=== PATIENT | female | born 1950 | race Caucasian/White ===

== ENCOUNTER 2018-12-14 00:18 | Emergency (ER) | payer MEDICARE ==
[~2018-12-14] VITALS: Ht 170.2 cm; Wt 53.5 kg
[~2018-12-14 00:18] MED LIST: ALPR.5; ALPR.5 PO; CEPH500 PO; CLON.5; ESCI20; GABA300
[2018-12-14] MEDS ORDERED: LEVSOD25 (00:31)
[2018-12-14] MEDS ORDERED: CITA20 PO (00:31)
[2018-12-14] MEDS ORDERED: KETO10 PO (01:13)
== END 2018-12-14 01:50 | disposition home or self-care (01) ==
LOC: ER 00:18
DX: M62.830 Muscle spasm of back (principal); F10.10 Alcohol abuse, uncomplicated; F17.200 Nicotine dependence, unspecified, uncomplicated; Z79.899 Other long term (current) drug therapy
CPT/HCPCS: 96372; 99283-25; J1885

== ENCOUNTER 2018-12-19 13:21 | Emergency (ER) | payer MEDICARE ==
[~2018-12-19] VITALS: Ht 170.2 cm; Wt 53.5 kg
[~2018-12-19 13:21] MED LIST changes: +CITA20 PO; +KETO10 PO; +LEVSOD25
[2018-12-19 14:13] LABS: BASOPHILS ABSOLUTE AUTO 0.06 K/mm3 (0.00-0.23); BASOPHILS PERCENT AUTO 1 % (0-2); EOSINOPHILS ABSOLUTE AUTO 0.15 K/mm3 (0.00-0.68); EOSINOPHILS PERCENT AUTO 2 % (0-6); Hemoglobin 16.8 g/dL (11.5-16.0); IMMATURE GRAN PERCENT AUTO 1 % (0-1); LYMPHOCYTES ABSOLUTE AUTO 2.27 K/mm3 (0.84-5.20); LYMPHOCYTES PERCENT AUTO 25 % (21-46); MONOCYTES ABSOLUTE AUTO 0.81 K/mm3 (0.16-1.47); MONOCYTES PERCENT AUTO 9 % (4-13); Mean Corpuscular HGB 33.1 pg (26.0-34.0); Mean Corpuscular Volume 95 fL (80-100); Mean Platelet Volume 9.3 fL (9.1-12.4); NEUTROPHILS PERCENT AUTO 63 % (41-73); Platelet Count 201 K/mm3 (150-400); RDW Standard Deviation 45.1 fL (35.1-46.3); Red Blood Cell Count 5.07 M/mm3 (3.80-5.20); White Blood Cell Count 9.19 K/mm3 (4.00-11.30)
[2018-12-19 14:37] LABS: Ethanol (Alcohol), Blood, Med 267 mg/dL
[2018-12-19 14:41] LABS: Alanine Aminotransfer (ALT/SGP 86 U/L (12-78); Albumin, Blood 3.3 g/dL (3.4-5.0); Albumin/Globulin Ratio 0.7 (0.8-1.8); Alk Phos 166 U/L (50-136); Anion Gap 11 mmol/L (6-16); Aspartate Aminotrans (AST/SGOT 106 U/L (12-37); Bilirubin, Total 0.5 mg/dL (0.1-1.0); Blood Urea Nitrogen 8 mg/dL (8-24); Bun/Creatinine Ratio 13.9 (12.0-20.0); CO2, Blood 23 mmol/L (21-32); Calcium, Blood 8.7 mg/dL (8.5-10.1); Chloride, Blood 99 mmol/L (98-108); Creatinine, Blood 0.58 mg/dL (0.40-1.00); Globulin, Blood 4.7 g/dL (2.2-4.0); Glomerular Filtration Rate >60 (60-); Glucose, Blood 93 mg/dL (70-99); Potassium, Blood 3.9 mmol/L (3.5-5.5); Sodium, Blood 133 mmol/L (136-145)
== END 2018-12-19 16:21 | disposition left against medical advice (07) ==
LOC: ER 13:21
PROVIDERS: Physician Assistant
DX: F10.10 Alcohol abuse, uncomplicated (principal); Z53.20 Procedure and treatment not carried out because of patient's decision for unspecified reasons
CPT/HCPCS: 36415; 80053; 85025; 99283; G0480

== ENCOUNTER 2018-12-31 04:33 | Emergency (ER) | payer MEDICARE ==
[~2018-12-31] VITALS: Ht 170.2 cm; Wt 56.7 kg
[2018-12-31 05:44] LABS: BASOPHILS ABSOLUTE AUTO 0.08 K/mm3 (0.00-0.23); BASOPHILS PERCENT AUTO 1 % (0-2); EOSINOPHILS ABSOLUTE AUTO 0.15 K/mm3 (0.00-0.68); EOSINOPHILS PERCENT AUTO 2 % (0-6); Hematocrit 47.1 % (33.0-51.0); Hemoglobin 16.3 g/dL (11.5-16.0); IMMATURE GRAN ABSOLUTE AUTO 0.07 K/mm3 (0.00-0.10); IMMATURE GRAN PERCENT AUTO 1 % (0-1); LYMPHOCYTES ABSOLUTE AUTO 1.71 K/mm3 (0.84-5.20); LYMPHOCYTES PERCENT AUTO 23 % (21-46); MONOCYTES PERCENT AUTO 7 % (4-13); Mean Corpuscular HGB 33.2 pg (26.0-34.0); Mean Corpuscular HGB Conc 34.6 g/dL (31.5-36.5); Mean Corpuscular Volume 96 fL (80-100); Mean Platelet Volume 9.2 fL (9.1-12.4); NEUTROPHILS ABSOLUTE AUTO 4.95 K/mm3 (1.96-9.15); NEUTROPHILS PERCENT AUTO 66 % (41-73); Platelet Count 143 K/mm3 (150-400); RDW Coefficient Variation 14.6 % (11.7-14.2); RDW Standard Deviation 50.6 fL (35.1-46.3); Red Blood Cell Count 4.91 M/mm3 (3.80-5.20); White Blood Cell Count 7.46 K/mm3 (4.00-11.30)
[2018-12-31 06:00] LABS: Alanine Aminotransfer (ALT/SGP 142 U/L (12-78); Albumin, Blood 3.4 g/dL (3.4-5.0); Albumin/Globulin Ratio 0.8 (0.8-1.8); Alk Phos 165 U/L (50-136); Anion Gap 11 mmol/L (6-16); Aspartate Aminotrans (AST/SGOT 243 U/L (12-37); Bilirubin, Total 0.4 mg/dL (0.1-1.0); Blood Urea Nitrogen 8 mg/dL (8-24); Bun/Creatinine Ratio 16.1 (12.0-20.0); CO2, Blood 24 mmol/L (21-32); Calcium, Blood 8.6 mg/dL (8.5-10.1); Chloride, Blood 102 mmol/L (98-108); Globulin, Blood 4.4 g/dL (2.2-4.0); Glomerular Filtration Rate >60 (60-); Glucose, Blood 86 mg/dL (70-99); Potassium, Blood 3.8 mmol/L (3.5-5.5); Sodium, Blood 137 mmol/L (136-145); Total Protein, Blood 7.8 g/dL (6.4-8.2)
== END 2018-12-31 07:10 | disposition home or self-care (01) ==
LOC: ER 04:33
PROVIDERS: Emergency Medicine
DX: F10.129 Alcohol abuse with intoxication, unspecified (principal); Y90.8 Blood alcohol level of 240 mg/100 ml or more; E86.0 Dehydration; E03.9 Hypothyroidism, unspecified; F17.200 Nicotine dependence, unspecified, uncomplicated; Z88.8 Allergy status to other drugs, medicaments and biological substances; Z88.1 Allergy status to other antibiotic agents; Z88.6 Allergy status to analgesic agent; Z88.2 Allergy status to sulfonamides; Z88.5 Allergy status to narcotic agent; Z79.899 Other long term (current) drug therapy
CPT/HCPCS: 36415; 80053; 85025; 96365; 99284-25; G0480; J3411; J3475; J7042

== ENCOUNTER 2019-03-01 11:44 | Inpatient (IN) | payer MEDICARE ==
[~2019-03-01] VITALS: Ht 170.2 cm; Wt 52.9 kg
[~2019-03-01 11:44] MED LIST changes: -CITA20 PO; -LEVSOD25
[2019-03-01 12:20] LABS: BASOPHILS ABSOLUTE AUTO 0.06 K/mm3 (0.00-0.23); BASOPHILS PERCENT AUTO 1 % (0-2); EOSINOPHILS ABSOLUTE AUTO 0.02 K/mm3 (0.00-0.68); EOSINOPHILS PERCENT AUTO 0 % (0-6); Hematocrit 39.7 % (33.0-51.0); IMMATURE GRAN ABSOLUTE AUTO 0.09 K/mm3 (0.00-0.10); IMMATURE GRAN PERCENT AUTO 1 % (0-1); LYMPHOCYTES ABSOLUTE AUTO 1.01 K/mm3 (0.84-5.20); LYMPHOCYTES PERCENT AUTO 10 % (21-46); MONOCYTES ABSOLUTE AUTO 0.46 K/mm3 (0.16-1.47); MONOCYTES PERCENT AUTO 4 % (4-13); Mean Corpuscular HGB 35.2 pg (26.0-34.0); Mean Corpuscular HGB Conc 35.3 g/dL (31.5-36.5); Mean Corpuscular Volume 100 fL (80-100); Mean Platelet Volume 9.4 fL (9.1-12.4); NEUTROPHILS PERCENT AUTO 84 % (41-73); Platelet Count 165 K/mm3 (150-400); RDW Coefficient Variation 14.9 % (11.7-14.2); Red Blood Cell Count 3.98 M/mm3 (3.80-5.20); White Blood Cell Count 10.54 K/mm3 (4.00-11.30)
[2019-03-01 12:36] LABS: Alanine Aminotransfer (ALT/SGP 153 U/L (12-78); Albumin, Blood 3.1 g/dL (3.4-5.0); Albumin/Globulin Ratio 0.7 (0.8-1.8); Alk Phos 372 U/L (50-136); Anion Gap 12 mmol/L (6-16); Aspartate Aminotrans (AST/SGOT 353 U/L (12-37); Bilirubin, Total 0.7 mg/dL (0.1-1.0); Blood Urea Nitrogen 6 mg/dL (8-24); Bun/Creatinine Ratio 12.1 (12.0-20.0); CO2, Blood 20 mmol/L (21-32); Calcium, Blood 8.2 mg/dL (8.5-10.1); Chloride, Blood 99 mmol/L (98-108); Creatinine, Blood 0.49 mg/dL (0.40-1.00); Globulin, Blood 4.7 g/dL (2.2-4.0); Glomerular Filtration Rate >60 (60-); Glucose, Blood 105 mg/dL (70-99); Sodium, Blood 131 mmol/L (136-145); Total Protein, Blood 7.8 g/dL (6.4-8.2)
[2019-03-01] MEDS ORDERED: CITA20 PO (20:02)
[2019-03-01] MEDS ORDERED: LEVSOD75 PO (20:03)
--- NOTE | 2019-03-02 00:25 | NUR ---
ADMIT RECEIVED FROM ER VIA GURNEY. AWAKE AND ALERT. ORIENTED TO SELF AND PLACE. MOVES ALL EXTREMITIES. SEVERE TREMBLING NOTED IN UPPER EXTREMITIES. FOLLOWS SIMPLE COMMANDS. SPEECH SLIGHTLY GARBLED. ANSWERS MOST QUESTIONS APPROPRIATELY. MONITOR SHOWS ST, RATE 120s. HYPERTENSION NOTED. AFEBRILE. RESPIRATIONS EVEN AND UNLABORED. ATTENDS IN PLACE. SEE ADMIT ASSESSMENT FOR FULL ASSESSMENT.
--- NOTE | 2019-03-02 03:25 | NUR ---
CIWA PT AWAKE. C/O INCREASED ANXIETY AND TREMORS. ORIENTED TO SELF AND TO PLACE AT THIS TIME. UNSURE OF TIME OF DAY AND DATE. PRECEDEX CONTINUES AT 0.2MCG/KG/HR. MEDICATED WITH ATIVAN 2MG IV AT THIS TIME.
[2019-03-02 03:38] LABS: Hematocrit 36.2 % (33.0-51.0); Hemoglobin 12.4 g/dL (11.5-16.0); Mean Corpuscular HGB 34.4 pg (26.0-34.0); Mean Corpuscular HGB Conc 34.3 g/dL (31.5-36.5); Mean Corpuscular Volume 101 fL (80-100); Mean Platelet Volume 9.5 fL (9.1-12.4); Platelet Count 129 K/mm3 (150-400); RDW Coefficient Variation 14.7 % (11.7-14.2); RDW Standard Deviation 55.7 fL (35.1-46.3); White Blood Cell Count 9.68 K/mm3 (4.00-11.30)
[2019-03-02 03:57] LABS: Alanine Aminotransfer (ALT/SGP 126 U/L (12-78); Albumin, Blood 2.7 g/dL (3.4-5.0); Albumin/Globulin Ratio 0.7 (0.8-1.8); Alk Phos 325 U/L (50-136); Anion Gap 9 mmol/L (6-16); Aspartate Aminotrans (AST/SGOT 256 U/L (12-37); Blood Urea Nitrogen 8 mg/dL (8-24); CO2, Blood 25 mmol/L (21-32); Calcium, Blood 7.7 mg/dL (8.5-10.1); Chloride, Blood 99 mmol/L (98-108); Creatinine, Blood 0.44 mg/dL (0.40-1.00); Globulin, Blood 4.1 g/dL (2.2-4.0); Glomerular Filtration Rate >60 (60-); Glucose, Blood 104 mg/dL (70-99); Potassium, Blood 3.4 mmol/L (3.5-5.5); Sodium, Blood 133 mmol/L (136-145); Total Protein, Blood 6.8 g/dL (6.4-8.2)
[2019-03-02 05:34] LABS: Source, Urine Catheter
[2019-03-02 05:39] LABS: Bilirubin, Urine Neg (Neg); Blood, Urine 2+ (Neg); Glucose Qualitative, Urine Neg (Neg); Ketones, Urine 1+ (Neg); Leukocyte Esterase, Urine 1+ (Neg); Nitrite, Urine Pos (Neg); Protein, Urine Neg (Neg); Specific Gravity, Urine 1.015 (1.003-1.022); Urobilinogen, Urine NORM (Normal)
[2019-03-02 05:40] LABS: Color, Urine Yellow (P-Yellow)
[2019-03-02 05:44] LABS: Appearance, Urine Clear (Clear)
[2019-03-02 05:45] LABS: Bacteria Many /hpf; Red Blood Cells, Urine 0-2 /hpf (0-2); Squamous Epithelial Cells Few /hpf (Few); White Blood Cells, Urine 0-2 /hpf (0-5)
--- NOTE | 2019-03-02 06:23 | NUR ---
SHIFT SUMMARY NO ACUTE CHANGES DURING NOC. SEDATED WITH PRECEDEX BETWEEN 0.2-0.4MCG/KG/HR. NOW INFUSING @ 0.3MCG/KG/HR. MEDICATED WITH ATIVAN IV AND LIBRIUM PO NEEDED FOR INCREASED CIWA. CIWA SCORE BETWEEN 15-21 DURING SHIFT. ORIENTED TO SELF AND TO PLACE, BUT NOT TO DATE/TIME OF DAY. SPEECH IS SLIGHTLY GARBLED. COOPERATIVE WITH CARE. FORGETFUL. BED ALARM IS ON. BANANA BAG INFUSING @100CC/HR PER ORDER. BUTT PLACE DURING SHIFT D/T INCONTINENCE AND REDDENED/EXCORIATED SKIN AND COCCYX/BUTTOCK WOUND. MEPILEX IN PLACE. INCONTINENT OF LOOSE BROWN STOOL X 1. WILL REPORT TO DAY SHIFT RN WHEN AVAILABLE.
--- NOTE | 2019-03-02 10:05 | NUR ---
0800... PT EASILY AROUSED AND ABLE TO ANSWER QUESTIONS. PT NOTED TO HAVE VISIBALE TREMORS AND C/O NEED FOR MORE MEDS BUT IS ALSO FALLS TO SLEEP WHEN LEFT ALONE FOR JUST A SHORT TIME. IVF NOTED.
--- NOTE | 2019-03-02 10:21 | NUR ---
PT BED ALARM CONFIRMED ON. PT IS NOT REQUIRING RESTRAINTS.
--- NOTE | 2019-03-02 13:07 | NUR ---
PT CURRENTLY FEARFUL AND ASKING FOR SITTER AT BED SIDE. PT PRECEDEX GTT AT 0.5 MCG AND ATIVAN GIVEN NOTED.
--- NOTE | 2019-03-02 17:34 | NUR ---
PT EASILY AROUSED ON PRECEDEX GTT RANGING 0.3-0.5 MCG TODAY. PT IS ANXIOUS AND FEARFUL WHILE AWAKE. PT U.O. IS LOW AND WILL INQUIRE ABOUT INCREASING RATE. IVF NS TO INCREASE TO 125ML.
--- NOTE | 2019-03-02 17:38 | NUR ---
Per admit trigger, I met with Alma to offer encouragement and prayer. She is very sleepy, but awakens to voice. She told me she is worried about her tremors. She appeared quite bothered by this and aske me to se if the RN could bring more medication "to make it stop." She declined prayer. She also denied that she has been trying to stop drinking. That said, she is very groggy and had trouble staying awake. I informed RN of her medication request. [facility] [facility] will remain available.
--- NOTE | 2019-03-02 20:54 | NUR ---
ASSUMED CARE OF PT, REPORT RCV'D FROM TYRONE JO RN. PT AROUSES TO STIMULI, PT ALERT TO SELF, PLACE AND SITUATION. PT AWAKES IN A PANIC AND IMMEDIATELY BEGINS ASKING FOR ATIVAN. PT VERY TREMULOUS WITH SEVERE ANXIETY STATING THAT SHE "ISN'T GETTING ENOUGH MEDICATION". PT CURRENTLY ON PRECEDEX 0.4 MCG/KG/HR, NS @100 ML/HR. LUNG SOUNDS CLEAR T/O, VSS. BUTT PATENT AND DRAINING. BED IN LOW/LOCKED POSITIONG,CALL LIGHT WITHIN REACH. SEE FULL SHIFT ASSESSMENT.
--- NOTE | 2019-03-03 00:16 | NUR ---
PT REFUSING REPOSITIONING. PT SITTING WITH HOB 30 DEGREES WITH 2 PILLOWS BEHIND HER HEAD. PT STATES THAT MOVING HER FROM THAT POSITION OR BY REDISTRIBUTING WEIGHT CAUSES "EXTREME ANXIETY AND PANIC". PT REMINDED THAT SHE CAME IN WITH A PRESSURE ULCER ON HER SACRUM AND THAT SHE IS AT INCREASED RISK FOR NEW OR WORSENING PRESSURE ULCERS. PT RESPONDED "I DON'T CARE, I AM FINE"
--- NOTE | 2019-03-03 00:34 | NUR ---
PT HALLUCINATING BELIEVING THAT HER ROOM IS "ON FIRE", PT REMINDED THAT SHE IS IN THE HOSPITAL AND REASSURED THAT HER ROOM IS NOT ON FIRE. PT REMAINS PANICKED, TREMULOUS, AND FRIGHTENED. CURRENT CIWA 31. WILL MEDICATE ACCORDINGLY.
--- NOTE | 2019-03-03 02:08 | NUR ---
PT AWAKES THINKING SHE IS AT HOME AND ASKING IF I "SPILLED HER BEER", I REMINDED HER THAT SHE WAS AT THE HOSPITAL, PT RESPONDS "BUT WHERE IS MY BEER?" REMINDED PT THAT WE DON'T SERVE BEER IN THE ICU. PT ASKED "WHY I WAS MAD AT HER". PT MEDICATED WITH ATIVAN PER [facility] PROTOCOL. INCONTINENT OF STOOL, CATH CARE AND REPOSITIONING DONE.
[2019-03-03 04:09] LABS: Anion Gap 6 mmol/L (6-16); Blood Urea Nitrogen 9 mg/dL (8-24); Bun/Creatinine Ratio 19.6 (12.0-20.0); CO2, Blood 25 mmol/L (21-32); Calcium, Blood 7.5 mg/dL (8.5-10.1); Chloride, Blood 104 mmol/L (98-108); Creatinine, Blood 0.46 mg/dL (0.40-1.00); Glomerular Filtration Rate >60 (60-); Glucose, Blood 112 mg/dL (70-99); Magnesium, Blood 1.9 mg/dL (1.6-2.4); Potassium, Blood 3.1 mmol/L (3.5-5.5); Sodium, Blood 135 mmol/L (136-145)
--- NOTE | 2019-03-03 06:00 | NUR ---
SHIFT SUMMARY PT AROUSABLE BUT OFTEN CONFUSED. CIWA BETWEEN 20-31. PT STILL EXHIBITS SEVERE TREMORS BLE AND HAD SEVERAL INCIDENCES OF HALLUCINATIONS (SEE PREVIOUS NOTES) PT IS VERY WEAK, UNABLE TO ASSIST WITH TURNS, CANNOT HOLD CUP IN HER HAND AND HAS DIFFICULTY SIPPING WATER THROUGH A STRAW. PT HAD ONE LOOSE INCONTINENT BOWEL AND 2100 DARK YELLOW URINE OUTPUT. PT MILDLY HYPERTENSIVE WITH SBP'S IN UPPER 160'S. ALL OTHER VSS. NS @ 125 ML/HR, PRECEDEX @ 0.7 MCG/KG/HR. SEE PREVIOUS NOTES FROM THIS SHIFT. WILL REPORT TO DAYSHIFT NURSE.
--- NOTE | 2019-03-03 08:49 | NUR ---
ASSUMED CARE: REPORT RECEIVED FROM JULIET Powell RN. ASSUMED CARE OF THIS PT AT APPROX 0700. ON ASSESSMENT, THE PT IS ANXIOUS & CALLING OUT "NURSE, NURSE!" SHE IS FAIRLY REDIRECTABLE & CALMS W/ REASSURANCE & MEDS PER EMAR. SHE NEEDS FREQUENT REMINDERS THAT SHE HAS INDEED RECEIVED HER MEDS & ASKS OFTEN "WHEN WILL THIS END?" R/T HER ETOH W/D. PRECEDEX DRIP CONTINUES AT 0.7 MCG/KG/HR W/ ATIVAN PER EMAR FOR BREAKTHROUGH ANXIETY/ WITHDRAWAL SYMPTOMS. WILL CONTINUE TO MONITOR & UPDATE NEEDED.
--- NOTE | 2019-03-03 11:03 | NUR ---
UPDATE: PT CALLING OUT, STS "HELP ME, I'M BLEEDING." SHE IS HALLUCINATING AT THIS TIME THAT HER NOSE IS BLEEDING. REASSURANCE PROVIDED THAT HER NOSE IS ONLY RUNNING, NOT BLEEDING. SHE IS FAIRLY REDIRECTABLE. MEDS PER EMAR.
--- NOTE | 2019-03-03 18:34 | NUR ---
SHIFT SUMMARY: NO ACUTE CHANGES SINCE INTITIAL ASSESSMENT. PT REMAINS A&O TO SELF, EVENT & OCCASIONALLY PERSON. SHE IS OVERALL FORGETFUL & DISORIENTED, NEEDING FREQUENT REASSURANCE & REMINDERS OF CARE THAT IS BEING/ HAS BEEN PROVIDED. CIWA CHARTED; 25-30. LS ARE CLEAR T/O, DIM IN BASES. PT ON RA W/ O2 SATS > 92%. OCCASIONAL COUGHING NOTED AFTER PT TAKES SIPS OF WATER, SHE CLEARS THIS WELL. MONITOR SHOWS SR-SB W/ HR 50-60s. BP STABLE. BT x4, PT HAVING LOOSE STLS & IS INCONTINENT OF BOWEL. BUTT PATENT/DRAINING YELLOW URINE W/ SEDIMENT. MEPILEX TO COCCYX HAS BEEN CHANGED THIS EVENING. WILL CONTINUE TO MONITOR & REPORT OFF TO ONCOMING RN.
[2019-03-04 04:13] LABS: BASOPHILS ABSOLUTE AUTO 0.04 K/mm3 (0.00-0.23); BASOPHILS PERCENT AUTO 1 % (0-2); EOSINOPHILS ABSOLUTE AUTO 0.07 K/mm3 (0.00-0.68); EOSINOPHILS PERCENT AUTO 1 % (0-6); Hematocrit 38.2 % (33.0-51.0); Hemoglobin 12.9 g/dL (11.5-16.0); IMMATURE GRAN ABSOLUTE AUTO 0.04 K/mm3 (0.00-0.10); IMMATURE GRAN PERCENT AUTO 1 % (0-1); LYMPHOCYTES ABSOLUTE AUTO 0.89 K/mm3 (0.84-5.20); LYMPHOCYTES PERCENT AUTO 15 % (21-46); MONOCYTES ABSOLUTE AUTO 0.31 K/mm3 (0.16-1.47); MONOCYTES PERCENT AUTO 5 % (4-13); Mean Corpuscular HGB Conc 33.8 g/dL (31.5-36.5); Mean Corpuscular Volume 101 fL (80-100); Mean Platelet Volume 10.4 fL (9.1-12.4); NEUTROPHILS PERCENT AUTO 78 % (41-73); Platelet Count 97 K/mm3 (150-400); RDW Coefficient Variation 14.3 % (11.7-14.2); Red Blood Cell Count 3.79 M/mm3 (3.80-5.20); White Blood Cell Count 6.05 K/mm3 (4.00-11.30)
[2019-03-04 04:34] LABS: Alanine Aminotransfer (ALT/SGP 105 U/L (12-78); Albumin, Blood 2.6 g/dL (3.4-5.0); Albumin/Globulin Ratio 0.6 (0.8-1.8); Alk Phos 311 U/L (50-136); Anion Gap 7 mmol/L (6-16); Aspartate Aminotrans (AST/SGOT 167 U/L (12-37); Bilirubin, Total 1.1 mg/dL (0.1-1.0); Blood Urea Nitrogen 6 mg/dL (8-24); Bun/Creatinine Ratio 12.7 (12.0-20.0); CO2, Blood 26 mmol/L (21-32); Calcium, Blood 7.8 mg/dL (8.5-10.1); Chloride, Blood 104 mmol/L (98-108); Creatinine, Blood 0.47 mg/dL (0.40-1.00); Globulin, Blood 4.2 g/dL (2.2-4.0); Glomerular Filtration Rate >60 (60-); Glucose, Blood 105 mg/dL (70-99); Sodium, Blood 137 mmol/L (136-145); Total Protein, Blood 6.8 g/dL (6.4-8.2)
--- NOTE | 2019-03-04 05:33 | NUR ---
SHIFT SUMMARY PATIENT SLEEPY AT THE BEGINNING OF THE SHIFT, HOWEVER AFTER SEVERAL HOURS PATIENT BEGAN TO WAKE UP AND BECOME MORE ANXIOUS. PATIENT MEDICATED FOR CIWA SCORES PER EMAR. PATIENT HAD SEVERAL EPISODES OF ANXIETY THROUGHOUT THE NIGHT. WHEN AWAKE PATIENT CONSTANTLY STATING, "HELP ME, HELP ME." PATIENT HAS FREQUENT REQUESTS WHEN AWAKE FOR WATER, KLENEX, AND REPOSITIONING. PATIENT OFTEN STATES THAT SHE FEELS "PANICKY" EVEN WHEN SHE DOES NOT APPEAR TO BE IN DISTRESS. PATIENT STATES, "I KNOW I MAY NOT LOOK LIKE I'M PANICING BUT I FEEL LIKE IT INSIDE." PATIENT PROVIDED WITH APPROPRIATE SUPPORT. PATIENT REPOSITIONED AT LEAST Q2H THROUGHOUT THE NIGHT. IV FLUIDS AND PRECEDEX RUNNING PER ORDERS. PATIENT CURRENTLY APEPARS TO BE SLEEPING. WILL CONTINUE TO MONITOR PATIENT AND REPORT TO ONCOMING RN.
--- NOTE | 2019-03-04 06:15 | NUR ---
POTASSIUM OF 3.0: DR GUEVARA CALLED AND NOTIFIED OF PATIENT'S POTASSIUM LEVEL OF 3.0 THIS AM. ORDERS RECIEVED.
--- NOTE | 2019-03-04 08:16 | NUR ---
ASSUMED CARE: REPORT RECEIVED FROM ISAAC Maza RN. ASSUMED CARE OF THIS PT AT APPROX 0700. ON ASSESSMENT, THE PT CALLING OUT "NURSE" REPEATEDLY. UPON ENTERING THE ROOM SHE STS THAT SHE IS FRIGHTENED BECAUSE SHE "CAN'T BREATHE" R/T DRY MOUTH. SIPS OF WATER & MOUTH MOISTURIZER PROVIDED, THE PT TOLERATES THIS WELL. CIWA CHARTED, PT IS ANXIOUS & TREMULOUS BUT IS NOT HALLUCINATING AT THIS TIME. MEDS PER EMAR. POTASSIUM REPLETION ORDERED. WILL CONTINUE TO MONITOR & UPDATE NEEDED.
--- NOTE | 2019-03-04 09:00 | NUR ---
DR. SMITH: PROVIDER AT BEDSIDE TO SEE PT. REQUESTS THAT POTASSIUM BLOOD LEVEL BE RECHECKED AN HOUR AFTER REPLETION IS COMPLETED. NO OTHER ORDERS. WILL CONTINUE TO MONITOR & UPDATE NEEDED.
--- NOTE | 2019-03-04 17:49 | NUR ---
SHIFT SUMMARY: NO ACUTE CHANGES SINCE ASSUMING CARE. PT CONTINUES TO BE INTERMITTENTLY CONFUSED W/ CIWA SCORES CHARTED. MEDS PER EMAR. SHE IS HAVING SOME VISUAL & TACTILE HALLUCINATIONS WELL THIS SHIFT, "TEXTING" HER SO, CHERIE, DESPITE HER PHONE BEING TURNED OFF/. LS ARE CLEAR T/O, DIM IN BASES. PT ON RA W/ O2 SATS > 92%. MONITOR SHOWS SR-ST, 70-110s, INCREASED HR & BP W/ ANXIETY. PT HAS HAD NO BM THIS SHIFT, ATTENDS IN PLACE FOR HX BOWEL INCONTINENCE. BUTT PATENT/DRAINING YELLOW URINE, SMALL AMNT SEDIMENT NOTED. MEPILEX TO COCCYX REMAINS CDI. Q2H TURNS PT ALLOWS. WILL CONTINUE TO MONITOR & REPORT OFF TO ONCOMING RN.
--- NOTE | 2019-03-04 19:40 | NUR ---
ASSUMED CARE RECEIVED REPORT FROM JOSUE GONZALEZ. PT IS CURRENTLY ASLEEP. VITALS STABLE, ASIDE ELEVATED BP, MAY BE POSITIONAL THOUGH. PRECEDEX IS INFUSING 0.7MCG/KG/HR AND NS @ 125ML/HR. IV SITES WNL. BED LOW AND LOCKED, CALL LIGHT WIHTIN REACH.
--- NOTE | 2019-03-04 23:06 | NUR ---
UPDATE PT CIWA 17; VERY FEARFUL AND ANXIOUS. VERY PATICULAR ABOUT POSITIONING OF HERSELF AND THE PILLOWS AROUND HER; IF ITS NOT A CERTAIN WAY SHE GETS EVEN MORE ANXIOUS, FEARFUL AND SLIGHTLY AGITATED. SHE IS ALERT AND ORIENTED TO HERSELF, AND WHERE SHE IS, BUT TIME IS A STRUGGLE FOR HER. NO PERCEPTION OF TIME, ASKS IF SHE CAN HAVE HER NEXT DOSE OF ATIVAN AFTER BEING TOLD THAT SHE WAS JUST GIVEN SOME, AND THAT SHES NOT DUE FOR ANOTHER DOSE YET. SOMEWHAT REDIRECTABLE, WAS ABLE TO GET HER SOMEWHAT COMFORTABLE.
[2019-03-05 03:57] LABS: BASOPHILS ABSOLUTE AUTO 0.04 K/mm3 (0.00-0.23); BASOPHILS PERCENT AUTO 1 % (0-2); EOSINOPHILS PERCENT AUTO 2 % (0-6); Hematocrit 38.1 % (33.0-51.0); Hemoglobin 12.7 g/dL (11.5-16.0); IMMATURE GRAN ABSOLUTE AUTO 0.05 K/mm3 (0.00-0.10); IMMATURE GRAN PERCENT AUTO 1 % (0-1); LYMPHOCYTES ABSOLUTE AUTO 1.18 K/mm3 (0.84-5.20); LYMPHOCYTES PERCENT AUTO 24 % (21-46); MONOCYTES ABSOLUTE AUTO 0.36 K/mm3 (0.16-1.47); MONOCYTES PERCENT AUTO 7 % (4-13); Mean Corpuscular HGB 34.4 pg (26.0-34.0); Mean Corpuscular HGB Conc 33.3 g/dL (31.5-36.5); Mean Corpuscular Volume 103 fL (80-100); Mean Platelet Volume 10.2 fL (9.1-12.4); NEUTROPHILS ABSOLUTE AUTO 3.29 K/mm3 (1.96-9.15); NEUTROPHILS PERCENT AUTO 66 % (41-73); Platelet Count 84 K/mm3 (150-400); RDW Coefficient Variation 14.3 % (11.7-14.2); RDW Standard Deviation 54.4 fL (35.1-46.3); Red Blood Cell Count 3.69 M/mm3 (3.80-5.20); White Blood Cell Count 5.02 K/mm3 (4.00-11.30)
[2019-03-05 04:11] LABS: Anion Gap 11 mmol/L (6-16); Blood Urea Nitrogen 6 mg/dL (8-24); Bun/Creatinine Ratio 13.3 (12.0-20.0); CO2, Blood 23 mmol/L (21-32); Calcium, Blood 7.6 mg/dL (8.5-10.1); Chloride, Blood 105 mmol/L (98-108); Creatinine, Blood 0.45 mg/dL (0.40-1.00); Glomerular Filtration Rate >60 (60-); Glucose, Blood 97 mg/dL (70-99); Magnesium, Blood 1.3 mg/dL (1.6-2.4); Potassium, Blood 3.3 mmol/L (3.5-5.5); Sodium, Blood 139 mmol/L (136-145)
--- NOTE | 2019-03-05 06:20 | NUR ---
SHIFT SUMMARY PT IS ALERT, AND ORIENTED TO SELF PLACE AND . CIWA RANGING FROM ~5 (WHILE ASLEEP) TO 17-20 WHILE AWAKE. NO HALLUCINATIONS OVERNIGHT; PRIMARILY ANXIOUS, TREMULOUS, CLOUDED SENSORIUM, AND SLIGHTLY AGITATION. ATIVAN WAS GIVEN 2MG/Q2H; PER REQUEST OF PT, WHILE REMAINING UNDER 24MG/24H. PT WAS ABLE TO REST FOR A BIG CHUNK OF NIGHT, HOWEVER, HAD MULTIPLE MOMENTS OF ANXIETY/PANIC EPISODES. PT CONCERNED THAT SHES NOT GETTING BETTER, AND THAT SHE CANT STOP SHAKING. SHE STATED CONCERN THAT SHE DIDNT HAVE HER BOTTOM DENTURES AND THAT HER SAID "HE PUT THEM ON THE WHITE CHEST OUT THERE" WHILE POINTING OUTSIDE THE ROOM. TOLD HER THAT I WOULD HAVE THE DAY RN CALL THE AND ASK IN THE MORNING. SHE DOES NOT APPEAR TO HAVE A GOOD GRASP ON HER PERCEPTION OF TIME, ASKING FOR SOMETHING MULTIPLE TIMES, "IS IT TIME FOR MY ATIVAN?" AFTER TELLLING HER ITS NOT TIME YET, AND SHE IS DUE IN AN HOUR. PT SWALLOWS SMALL SIPS OF WATER GREAT; JUST NEEDS TO BE REMINDED TO SUCK HARDER, AND TO GO SLOW. DID NOT GIVE LIBRIUM OVERNIGHT BECAUSE HER MOUTH WAS EXTREEMLY DRY, SHE COULD ONLY SIP SMALL SIPS, AND THE NIGHT NURSE LAST NIGHT HAD TROUBLE. IF AWAKE BEFORE SHIFT REPORT WILL TRY TO GIVE LIBRIUM WITH LEVOTHYROXINE. PT IS IN NSR, WITH ELEVATED BP. GETTING BETTER THROGUHOUT NIGHT (SEE VS). NO BM AND MAKING PLENTY OF URINE (SEE I/O'S). PT REPORTS NO PAIN, OR HEADACHE. POTASSIUM STILL SLIGHTLY LOW WITH 3.3 AFTER K RIDER INFUSION. WILL PASS ON TO DAY RN. BED IS LOW AND LOCKED. CALL LIGHT WITHIN REACH.
--- NOTE | 2019-03-05 07:20 | NUR ---
ASSUMED CARE: REPORT RECEIVED FROM TESSY Abreu RN. ASSUMED CARE OF THIS PT AT APPROX 0700. ON ASSESSMENT, THE PT IS CALLING OUT "NURSE" & REQUESTING HER "ANXIETY MEDS." CIWA CHARTED, MEDS PER EMAR. PT IS ALERT & AWAKE ENOUGH TO SAFELY SWALLOW PILLS THIS AM, PO LIBRIUM HAS ALSO BEEN GIVEN. THE PT's SPEECH IS MORE CLEAR THIS AM & SHE HAS A BETTER GRASP OF TIME/ SURROUNDINGS TODAY THAN YESTERDAY. ELECTROLYTE REPLETION PER EMAR. WILL CONTINUE TO MONITOR & UPDATE NEEDED.
--- NOTE | 2019-03-05 09:20 | NUR ---
DR. SMITH: PROVIDER AT BEDSIDE TO SEE PT. DECREASED PLATELET COUNT & LOVENOX DOSING IS DISCUSSED. HIT PROTOCOL ORDERS TO BE PLACED, PT's PLT COUNT HAS DROPPED BY 50% SINCE ADMIT 4 DAYS AGO. LOVENOX TO BE HELD AT THIS TIME & SCD's TO BE PLACED ON PT. PROVIDER STS SHE WILL PLACE THESE ORDERS.
--- NOTE | 2019-03-05 15:17 | NUR ---
1500: CARE ASSUMED, PT SLEEPING AT THIS TIME, PRECEDEX 0.7MCG, POTASSIUM AND NS INFUSING PER ORDERS. VSS, HR 80'S, BP 144/80.
--- NOTE | 2019-03-05 16:38 | NUR ---
1600: PT AWAKE, ITCHING, TREMULOUS. CIWA 21, MEDICATED WITH ATIVAN AND LIBRIUM PER ORDERS. AT BEDSIDE, VSS.
--- NOTE | 2019-03-05 19:23 | NUR ---
1700: PT RESPONDED WELL TO ATIVAN AND LIBRIUM, SLEEPING AT THIS TIME, VSS. 0: ATTENDS CHANGED, PT REPOSITIONED, VS REMAIN STABLE. PRECEDEX 0.7MCG, PT COOPERATIVE, DENIES NEEDS. 1900: REPORT TO ONCOMING SHIFT, PT RESTING QUIETLY IN BED, VSS, AT BEDSIDE.
--- NOTE | 2019-03-05 19:45 | NUR ---
ASSUMED CARE RECIEVED REPORT FROM PAUL GONZALEZ. PT IS AWAKE TALKING TO AT BEDSIDE. PT IS ALERT, AND ORIENTED TO PLACE, , SELF, AND SITUATION. NOT SO MUCH TO TIME. PRECEDEX 0.7MCG/KG/HR AND NS @ 125ML/HR. PT STATES SHE IS IN A COMFORTABLE POSITION. BED IS LOW AND LOCKED, CALL LIGHT WITHIN REACH.
--- NOTE | 2019-03-06 02:42 | NUR ---
UPDATE PT HAD SUSTAINED RUN OF VTACH, RATE UP TO 200. WENT INTO ROOM AND WOKE UP PT UP; SHE WOKE UP AND STARTED TALKING, HR DROPPED BACK INTO NSR WITH A RATE IN 80-90'S. PT'S MENTATION IS AT BASELINE S/P VTACH. DENIES CP/SOB. CALLED TO [facility], STAT MAGNESIUM LEVEL ORDERED.
[2019-03-06 03:08] LABS: BASOPHILS ABSOLUTE AUTO 0.04 K/mm3 (0.00-0.23); BASOPHILS PERCENT AUTO 1 % (0-2); EOSINOPHILS ABSOLUTE AUTO 0.12 K/mm3 (0.00-0.68); EOSINOPHILS PERCENT AUTO 2 % (0-6); Hematocrit 38.6 % (33.0-51.0); Hemoglobin 12.9 g/dL (11.5-16.0); IMMATURE GRAN ABSOLUTE AUTO 0.09 K/mm3 (0.00-0.10); IMMATURE GRAN PERCENT AUTO 2 % (0-1); LYMPHOCYTES ABSOLUTE AUTO 1.28 K/mm3 (0.84-5.20); LYMPHOCYTES PERCENT AUTO 21 % (21-46); MONOCYTES ABSOLUTE AUTO 0.57 K/mm3 (0.16-1.47); MONOCYTES PERCENT AUTO 9 % (4-13); Mean Corpuscular HGB 34.7 pg (26.0-34.0); Mean Corpuscular HGB Conc 33.4 g/dL (31.5-36.5); Mean Corpuscular Volume 104 fL (80-100); NEUTROPHILS ABSOLUTE AUTO 4.03 K/mm3 (1.96-9.15); NEUTROPHILS PERCENT AUTO 66 % (41-73); Platelet Count 89 K/mm3 (150-400); RDW Coefficient Variation 14.2 % (11.7-14.2); RDW Standard Deviation 54.1 fL (35.1-46.3); Red Blood Cell Count 3.72 M/mm3 (3.80-5.20); White Blood Cell Count 6.13 K/mm3 (4.00-11.30)
[2019-03-06 03:24] LABS: Alanine Aminotransfer (ALT/SGP 77 U/L (12-78); Albumin, Blood 2.5 g/dL (3.4-5.0); Albumin/Globulin Ratio 0.6 (0.8-1.8); Alk Phos 256 U/L (50-136); Anion Gap 10 mmol/L (6-16); Aspartate Aminotrans (AST/SGOT 69 U/L (12-37); Bilirubin, Total 0.8 mg/dL (0.1-1.0); Blood Urea Nitrogen 7 mg/dL (8-24); Bun/Creatinine Ratio 14.7 (12.0-20.0); CO2, Blood 22 mmol/L (21-32); Calcium, Blood 8.1 mg/dL (8.5-10.1); Chloride, Blood 107 mmol/L (98-108); Creatinine, Blood 0.48 mg/dL (0.40-1.00); Globulin, Blood 4.1 g/dL (2.2-4.0); Glomerular Filtration Rate >60 (60-); Glucose, Blood 98 mg/dL (70-99); Potassium, Blood 3.4 mmol/L (3.5-5.5); Sodium, Blood 139 mmol/L (136-145); Total Protein, Blood 6.6 g/dL (6.4-8.2)
--- NOTE | 2019-03-06 05:23 | NUR ---
SBT/SEDATION VACATION PT DID WELL DURING SBT; SEE RT NOTE. MINIMAL TO ABSENT CUFF LEAK, HOWEVER. FOLLOWING COMMANDS, NODDING YES/NO, EQUAL STRENGTH IN CERTIFIED DRUG COUNSELOR IN EACH HAND. WIGGLED TOES. LIFTED EACH LEG ON COMMAND, AND TUCKED CHIN TO CHEST. DENIES PAIN. PROPOFOL WAS WEANED DOWN PRIOR TO SBT, AND WAS ON STANDBY FOR MAJORITY OF TRIAL. PRECEDEX WAS TITRATED UP TO 0.7MCG/KG/HR DURING TRIAL, AND NOW IS ON STANDBY. WHILE PROPOFOL BACK ON TO 30MCG/KG/MIN.
--- NOTE | 2019-03-06 07:20 | NUR ---
ASSUMED CARE: REPORT RECEIVED FROM TESSY Abrue RN. ASSUMED CARE OF THIS PT AT APPROX 0700. ON ASSESSMENT, THE PT IS CALLING OUT "NURSE!" & STS THAT SHE HAS "MESSED" HER PANTS. SHE THEN STS THAT SHE ACTUALLY "DREAMED" SHE HAD A BM BUT THAT SHE ACTUALLY HAD NOT. CIWA CHARTED, Q4 & PRN. POTASSIUM & MAG REPLETION INFUSING ORDERED, RATE ON POTASSIUM DECREASED BECAUSE OF PAIN/ BURNING W/ INFUSION. PT NOW TOLERATING WELL. PRECEDEX CONTINUES. THE PT HAS ONE PROLONGED EPISODE OF COUGHING FOLLOWING SIPS OF WATER PO. SHE HAS BEEN INSTRUCTED THAT NO MORE SIPS WILL BE ALLOWED UNTIL SHE IS MORE AWAKE & CAN SWALLOW SAFELY. SHE IS UPSET ABOUT THIS & IT IS REINFORCED THAT IT IS NOT SAFE FOR HER TO TAKE SIPS AT THIS TIME, HER IS AT BEDSIDE & EDUCATION REGARDING THIS ISSUE HAS BEEN COMPLETED W/ HIM WELL. WILL CONTINUE TO MONITOR & UPDATE NEEDED.
--- NOTE | 2019-03-06 07:31 | NUR ---
SHIFT SUMMARY PT HAD A RUN OF VTACH LAST NIGHT (SEE LAST NOTE) BUT RETURNED TO BASELINE HR WHEN AWOKEN, AND STARTED TALKING. PT ALERT AND ORIENTED TO SELF, SITUATION, AND PLACE. SOMETIMES CONFUSED, AND OFTEN FORGETFUL. SHE HAS LITTLE PERCEPTION OF TIME, AND RE ASKS THE SAME QUESTIONS. PRECEDEX IS INFUSING AT 0.7MCG/KG/HR, AND NS AT 125ML/HR. CIWA HAS BEEN 17 BETWEEN DOSES OF ATIVAN/LIBRIUM. PT SWALLOWS FINE WHEN REMINDED TO GO SLOW AND TO SUCK HARDER. VERY PARTICULAR ABOUT THE POSITION SHE WANTS TO BE IN. PT DENIES PAIN, AND EXPRESSES THAT SHE IS ANXIOUS, SCARED AND 'PANIC-EY'. BED IS LOW AND LOCKED AND CALL LIGHT WIHTIN REACH.
--- NOTE | 2019-03-06 08:30 | NUR ---
DR. SMITH: PROVIDER AT BEDSIDE TO SEE PT. ELECTROLYTE REPLETION IN PROGRESS, NO NEW ORDERS AT THIS TIME.
--- NOTE | 2019-03-06 17:51 | NUR ---
SHIFT SUMMARY: NO ACUTE CHANGES SINCE ASSUMING CARE. PT HAS RESTED WELL THIS SHIFT, SLEEPING MORE SOUNDLY THAN DURING PRIOR SHIFTS. CIWA DECREASING; PT IS LESS SHAKY & AGITATED, SHE REMAINS ANXIOUS WHEN AWAKE, HAVING NO HALLUCINATIONS THIS AFTERNOON. FREQUENCY OF ATIVAN DOSING HAS BEEN DECREASING WELL. REMAINS ON RA W/ O2 SATS > 92%. HAS MOIST COUGH BUT IS UNABLE TO THOROUGHLY EXPECTORATE SPUTUM. MONITOR SHOWS SR W/ HR 60-70s. BP STABLE. NO BM THIS SHIFT. BUTT PATENT/DRAINING CLEAR YELLOW URINE. MEPILEX TO COCCYX WOUND CHANGED THIS AM. WILL CONTINUE TO MONITOR & REPORT OFF TO ONCOMING RN.
--- NOTE | 2019-03-06 19:30 | NUR ---
ASSUMED CARE OF PT, REPORT RCV'D FROM LISA SALAS. PT ALERT/ORIENTED, SLOW TO RESPOND TO QUESTIONS, VISIBLY WEAK SHE IS UNABLE TO LIFT HER HEAD. PT IMMEDIATELY ASKS FOR ATIVAN AND LIBRIUM UPON AROUSAL. PT IS NOT VISIBLY TREMULOUS, NO VISUAL/AUDITORY HALLUCINATIONS. PRECEDEX @0.5 MCG/KG/HR, NS@ 125 ML/HR. BUTT PATENT AND DRAINING DARK VERENA URINE. SEE FULL SHIFT ASSESSMENT.
[2019-03-07 03:32] LABS: BASOPHILS ABSOLUTE AUTO 0.06 K/mm3 (0.00-0.23); BASOPHILS PERCENT AUTO 1 % (0-2); EOSINOPHILS ABSOLUTE AUTO 0.14 K/mm3 (0.00-0.68); EOSINOPHILS PERCENT AUTO 2 % (0-6); Hematocrit 37.2 % (33.0-51.0); Hemoglobin 12.1 g/dL (11.5-16.0); IMMATURE GRAN ABSOLUTE AUTO 0.09 K/mm3 (0.00-0.10); IMMATURE GRAN PERCENT AUTO 1 % (0-1); LYMPHOCYTES ABSOLUTE AUTO 1.23 K/mm3 (0.84-5.20); LYMPHOCYTES PERCENT AUTO 19 % (21-46); MONOCYTES ABSOLUTE AUTO 0.64 K/mm3 (0.16-1.47); MONOCYTES PERCENT AUTO 10 % (4-13); Mean Corpuscular HGB 35.3 pg (26.0-34.0); Mean Corpuscular HGB Conc 32.5 g/dL (31.5-36.5); NEUTROPHILS PERCENT AUTO 66 % (41-73); Platelet Count 89 K/mm3 (150-400); RDW Coefficient Variation 14.4 % (11.7-14.2); RDW Standard Deviation 58.1 fL (35.1-46.3); Red Blood Cell Count 3.43 M/mm3 (3.80-5.20); White Blood Cell Count 6.36 K/mm3 (4.00-11.30)
--- NOTE | 2019-03-07 03:33 | NUR ---
SWALLOW EVAL PT ATTEMPTED TO TAKE SIP OF WATER THROUGH STRAW AND BEGAN CHOKING/COUGHING. PER DAYSHIFT PT CHOKED WHILE ATTEMPTING TO DRINK OUT OF CUP THIS AM. EXPLAINED TO PT THAT FOR HER SAFETY SHE CANNOT HAVE ANYTHING TO DRINK. PLACED REQUEST FOR SWALLOW EVAL WITH SPEECH THERAPY.
[2019-03-07 03:40] LABS: Mean Corpuscular Volume 109 fL (80-100)
[2019-03-07 03:52] LABS: Alanine Aminotransfer (ALT/SGP 63 U/L (12-78); Albumin, Blood 2.4 g/dL (3.4-5.0); Albumin/Globulin Ratio 0.6 (0.8-1.8); Alk Phos 224 U/L (50-136); Anion Gap 10 mmol/L (6-16); Aspartate Aminotrans (AST/SGOT 60 U/L (12-37); Bilirubin, Total 0.7 mg/dL (0.1-1.0); Blood Urea Nitrogen 7 mg/dL (8-24); Bun/Creatinine Ratio 14.2 (12.0-20.0); CO2, Blood 21 mmol/L (21-32); Calcium, Blood 8.2 mg/dL (8.5-10.1); Chloride, Blood 109 mmol/L (98-108); Creatinine, Blood 0.49 mg/dL (0.40-1.00); Globulin, Blood 3.9 g/dL (2.2-4.0); Glomerular Filtration Rate >60 (60-); Glucose, Blood 91 mg/dL (70-99); Magnesium, Blood 1.5 mg/dL (1.6-2.4); Potassium, Blood 3.3 mmol/L (3.5-5.5); Sodium, Blood 140 mmol/L (136-145); Total Protein, Blood 6.3 g/dL (6.4-8.2)
--- NOTE | 2019-03-07 05:51 | NUR ---
SHIFT SUMMARY PRECEDEX GTT PLACED ON STANDBY AT 0300 D/T LOW CIWA SCORES. PT BECAME MUCH MORE ALERT/ORIENTED AND QUICKER TO RESPOND TO QUESTIONS. PT EXPRESSED HER WISH TO REMAIN ON PRECEDEX AND RECEIVE ATIVAN AND LIBRIUM OFTEN POSSIBLE. EXPLAINED TO PT THAT SHE WAS GETTING BETTER AND THAT THIS IMPROVEMENT WAS GOOD. PT BEGAN SHAKING HER HANDS SAYING "LOOK IM SHAKY...GIVE ME MY MEDICINE". CIWA SCORES HAVE BEEN . PT HAS NOT HAD ANY VISIBLE TREMORS, OR HALLUCINATIONS BUT DOES APPEAR ANXIOUS. PT GIVEN 2 DOSES OF ATIVAN AND DID NOT REQUIRE ANY LIBRIUM. SWALLOW EVAL PLACED D/T PT'S TROUBLE SWALLOWING WATER. (SEE PREVIOUS NOTE) PT IS UNHAPPY BEING NPO STATUS AND ASKS IF SHE IS "INTENTIONALLY BEING STARVED TO ". MOUTH MOISTURIZER USED PRN. SEE PREVIOUS NOTES FROM THIS SHIFT. WILL REPORT TO DAYSINFT.
[2019-03-07 13:07] LABS: HEPARIN INDUCED PLATELET AB 0.252 OD (0.000-0.400)
--- NOTE | 2019-03-07 14:34 | NUR ---
UPDATE: REPORT HAS BEEN GIVEN TO MARIANA Ingram RN ON MED FLOOR TO ASSUME CARE. PT TO BE TX TO ROOM 331. BUTT HAS BEEN REMOVED. IVF DISCONTINUED PER ORDERS. PT TOLERATING SMALL AMNTS OF PO INTAKE WELL W/ NO NAUSEA.
--- NOTE | 2019-03-07 17:35 | NUR ---
ICU TRANSFER PT ARRIVE ON MED FLOOR APPROX 1530. SHE IS A/O X2, WEAK/FATIGUED, FRAIL. SHE STATE ANXIOUSNESS. BUE TREMOR NOTED. CIWA 10. PRN LIBRIUM 50MG GIVEN. HR TACHY 120'S. ACTIVE ETOH W/D. PT HAS BEEN DETOXING IN ICU APPROX 5 DAYS. IN TO VISIT. FLUIDS PROVIDED. WILL CONTINUE TO MX.
--- NOTE | 2019-03-08 04:02 | NUR ---
DURING THE FIRST HALF OF THE SHIFT, THE PT WAS QUITE ANXIOUS. ATIVAN WAS GIVEN APPROPRIATELY. EVENTUALLY PT WAS ABLE TO SLEEP. PT WAS REPOSITIONED APPROPRIATE, HEELS RAISED OFF THE BED. NO FURTHER SKIN BREAKDOWN NOTED AT THIS TIME. WILL CONTINUE TO MONITOR.
[2019-03-08 05:10] LABS: BASOPHILS ABSOLUTE AUTO 0.05 K/mm3 (0.00-0.23); BASOPHILS PERCENT AUTO 1 % (0-2); EOSINOPHILS PERCENT AUTO 2 % (0-6); Hemoglobin 12.7 g/dL (11.5-16.0); IMMATURE GRAN ABSOLUTE AUTO 0.07 K/mm3 (0.00-0.10); IMMATURE GRAN PERCENT AUTO 1 % (0-1); LYMPHOCYTES ABSOLUTE AUTO 0.96 K/mm3 (0.84-5.20); LYMPHOCYTES PERCENT AUTO 16 % (21-46); MONOCYTES ABSOLUTE AUTO 0.72 K/mm3 (0.16-1.47); MONOCYTES PERCENT AUTO 12 % (4-13); Mean Corpuscular HGB 35.3 pg (26.0-34.0); Mean Corpuscular HGB Conc 33.4 g/dL (31.5-36.5); Mean Platelet Volume 10.4 fL (9.1-12.4); NEUTROPHILS PERCENT AUTO 68 % (41-73); Platelet Count 121 K/mm3 (150-400); RDW Coefficient Variation 14.4 % (11.7-14.2); RDW Standard Deviation 55.8 fL (35.1-46.3)
[2019-03-08 05:11] LABS: Mean Corpuscular Volume 106 fL (80-100)
[2019-03-08 05:25] LABS: Anion Gap 9 mmol/L (6-16); Blood Urea Nitrogen 10 mg/dL (8-24); Bun/Creatinine Ratio 18.6 (12.0-20.0); CO2, Blood 23 mmol/L (21-32); Chloride, Blood 109 mmol/L (98-108); Creatinine, Blood 0.54 mg/dL (0.40-1.00); Glomerular Filtration Rate >60 (60-); Glucose, Blood 112 mg/dL (70-99); Potassium, Blood 3.1 mmol/L (3.5-5.5); Sodium, Blood 141 mmol/L (136-145)
--- NOTE | 2019-03-08 08:15 | NUR ---
PATIENT DID NOT WANT BREAKFAST THIS MORNING. PATIENT DECINED WHEN I OFFERED ALTERNATIVES WELL AN ENSURE, I OFFERED TO HELP AND SHE DECLINED. RN WAS NOTIFIED.
--- NOTE | 2019-03-08 18:19 | NUR ---
PATIENTS ATTENDS WERE CHECKED AND THEY WERE CLEN AND DRY. FAMILY WAS PRESENT IN THE ROOM. PATIENT SATTED SHE WAS DRY WHEN I LET HER KNOW WHAT I WAS IN THE ROOM TO DO, HOWEVER SHE LET ME CHECK WELL.
--- NOTE | 2019-03-08 18:22 | NUR ---
SHIFT SUMMARY OX3; ETOH ABUSE; APPROX 6TH DAY OF DETOX. QUITE TREMULOUS AND ANXIOUS. SPOUSE TO VISIT THROUGHOUT DAY AND ATTENTIVE. DECONDITIONED. UNHAPPY ABOUT POSSIBLE DISCHARGE TO [facility] TOMORROW. "I JUST LIKE IT HERE."; INCONTINENT. TAKING LIBRIUM. ATIVAN DISCONTINUED TODAY. BED REST. WORKED WITH PT TODAY BUT REMAINS QUITE WEAK.
--- NOTE | 2019-03-09 00:59 | NUR ---
LIBRIUM RECIEVED FOR CIWA 4 FOR TREMORS AND ANXIETY. AWAITING EFFECT.
--- NOTE | 2019-03-09 04:08 | NUR ---
SUMMARY: PT ORIENTED BUT FORGETFULL AND REQ'S FREQ REMINDERS. SHE CALLS INTO [facility] FOR NON-ACUTE NEEDS. TURN SCHEDULE WAS MAINTAINED AND ATTENDS CHANGED PRN. MEPILEX REMAINS C/D/I TO EXCORIATED BUTTOCKS. SHE SAT AT EOB W/PT TODAY AND STOOD MOMENTARILY BUT WAS NOT OOB THIS SHIFT. WEAKNESS AND DECONDITIONING PERSISTS W/LIKELY D/C TO [facility]. CIWA WAS 4 AROUND MN W/PRN LIBRIUM RECIEVED FOR GOOD EFFECT AT REDUCING ANXIETY AND TREMORS R/T ETOH ABUSE. SHE DOESN'T FEEL READY TO D/C TODAY AND WOULD PREFER TO STAY "ANOTHER DAY OR 2". THEY PLAN TO DISCUSS THIS W/DAY MD FURTHER. NO ACUTE CHANGES, VSS/AFEBRILE. WCTM AND REPORT TO DAY RN.
[2019-03-09 06:19] LABS: Anion Gap 7 mmol/L (6-16); Blood Urea Nitrogen 13 mg/dL (8-24); Bun/Creatinine Ratio 23.5 (12.0-20.0); CO2, Blood 24 mmol/L (21-32); Calcium, Blood 8.7 mg/dL (8.5-10.1); Chloride, Blood 112 mmol/L (98-108); Creatinine, Blood 0.55 mg/dL (0.40-1.00); Glomerular Filtration Rate >60 (60-); Glucose, Blood 103 mg/dL (70-99); Potassium, Blood 3.1 mmol/L (3.5-5.5); Sodium, Blood 143 mmol/L (136-145)
[2019-03-09] MEDS ORDERED: NICO21TP (11:19)
[2019-03-09] MEDS ORDERED: DOCU100 PO (11:19)
[2019-03-09] MEDS ORDERED: MIRALAX17 GM PO (11:20)
[2019-03-09] MEDS ORDERED: NICOTINE1 EAC1 TOP (11:20)
[2019-03-09] MEDS ORDERED: LORA1 PO (11:21)
--- NOTE | 2019-03-09 13:00 | NUR ---
PT. DISCHARGED TO [facility] VIA GROUND TRANSPORT AND . REPORT GIVEN EARLIER, WHEN CALLED BACK FOR REPORT ON ROOM32.
== END 2019-03-09 13:08 | DRG 897 ==
LOC: ER 11:44 → ERHOLD 11:45 → ICUE 23:55 → MEDS 03-07 16:00 → ENPENDDIS 03-09 10:50 → MEDS 03-09 13:08
PROVIDERS: Hospitalist; Internal Medicine; Physician Assistant; ADMIT Emergency Medicine
DX: F10.231 Alcohol dependence with withdrawal delirium (principal); E87.1 Hypo-osmolality and hyponatremia; N39.0 Urinary tract infection, site not specified; K70.10 Alcoholic hepatitis without ascites; E86.0 Dehydration; E87.6 Hypokalemia; E83.42 Hypomagnesemia; F17.210 Nicotine dependence, cigarettes, uncomplicated; F41.9 Anxiety disorder, unspecified; E03.9 Hypothyroidism, unspecified; B96.20 Unspecified Escherichia coli [E. coli] as the cause of diseases classified elsewhere
CPT/HCPCS: 36415; 51702; 80048; 80053; 81001; 83690; 83735; 84132; 85025; 85027; 86022; 87077; 87086; 87186; 92610; 93005; 93010; 96361; 96374; 96375; 96376; 97110; 97162; 97166; 97530; 97535; 99285-25; C1751; G0480; J0696; J1650; J2060; J3411; J3475; J3480; J7030; J7042; J7050

== ENCOUNTER 2020-07-02 14:14 | Emergency (ER) | payer MEDICARE ==
[~2020-07-02] VITALS: Ht 170.2 cm; Wt 54.4 kg
[~2020-07-02 14:14] MED LIST changes: +CITA20 PO; +DOCU100 PO; +LEVSOD75 PO; +LORA1 PO; +MIRALAX17 GM PO; +NICO21TP; +NICOTINE1 EAC1 TOP
[2020-07-02 14:55] LABS: BASOPHILS ABSOLUTE AUTO 0.05 K/mm3 (0.00-0.23); BASOPHILS PERCENT AUTO 1 % (0-2); EOSINOPHILS ABSOLUTE AUTO 0.03 K/mm3 (0.00-0.68); EOSINOPHILS PERCENT AUTO 0 % (0-6); Hematocrit 37.9 % (33.0-51.0); IMMATURE GRAN ABSOLUTE AUTO 0.08 K/mm3 (0.00-0.10); IMMATURE GRAN PERCENT AUTO 1 % (0-1); LYMPHOCYTES PERCENT AUTO 14 % (21-46); MONOCYTES PERCENT AUTO 4 % (4-13); Mean Corpuscular HGB 34.1 pg (26.0-34.0); Mean Corpuscular HGB Conc 34.3 g/dL (31.5-36.5); Mean Corpuscular Volume 100 fL (80-100); Mean Platelet Volume 10.8 fL (9.1-12.4); NEUTROPHILS ABSOLUTE AUTO 7.34 K/mm3 (1.96-9.15); NEUTROPHILS PERCENT AUTO 80 % (41-73); Platelet Count 99 K/mm3 (150-400); RDW Coefficient Variation 13.4 % (11.7-14.2); RDW Standard Deviation 49.4 fL (35.1-46.3); Red Blood Cell Count 3.81 M/mm3 (3.80-5.20)
[2020-07-02 15:21] LABS: Alanine Aminotransfer (ALT/SGP 50 U/L (12-78); Albumin, Blood 2.3 g/dL (3.4-5.0); Albumin/Globulin Ratio 0.5 (0.8-1.8); Alk Phos 192 U/L (50-136); Anion Gap 12 mmol/L (6-16); Aspartate Aminotrans (AST/SGOT 117 U/L (12-37); Blood Urea Nitrogen 5 mg/dL (8-24); Bun/Creatinine Ratio 10.2 (12.0-20.0); CO2, Blood 21 mmol/L (21-32); Calcium, Blood 8.3 mg/dL (8.5-10.1); Chloride, Blood 97 mmol/L (98-108); Creatinine, Blood 0.49 mg/dL (0.40-1.00); Ethanol (Alcohol), Blood, Med 85 mg/dL; Globulin, Blood 4.2 g/dL (2.2-4.0); Glomerular Filtration Rate >60 (60-); Glucose, Blood 93 mg/dL (70-99); Potassium, Blood 3.5 mmol/L (3.5-5.5); Salicylate 6.8 mg/dL (2.8-20.0); Sodium, Blood 130 mmol/L (136-145); Total Protein, Blood 6.5 g/dL (6.4-8.2)
[2020-07-02 15:32] LABS: Acetaminophen, Random <2.0 ug/mL (10.0-30.0)
[2020-07-02 19:40] LABS: Source, Urine Clean Catch
[2020-07-02 19:53] LABS: Appearance, Urine Hazy (Clear); Bilirubin, Urine Neg (Neg); Blood, Urine 5+ (Neg); Color, Urine Yellow (P-Yellow); Glucose Qualitative, Urine Neg (Neg); Ketones, Urine 1+ (Neg); Leukocyte Esterase, Urine 3+ (Neg); Nitrite, Urine Neg (Neg); Protein, Urine 3+ (Neg); Urobilinogen, Urine NORM (Normal)
[2020-07-02 20:02] LABS: Specific Gravity, Urine 1.015 (1.003-1.022)
[2020-07-02 20:06] LABS: Bacteria Mod /hpf; Red Blood Cells, Urine 25-50 /hpf (0-2); Renal Epithelial Rare /hpf (0-Rare); Squamous Epithelial Cells Mod /hpf (Few); Transitional Epithelial Cells Few /hpf (0-Rare); White Blood Cells, Urine 25-50 /hpf (0-5)
[2020-07-02 20:12] LABS: U Amphetamine Screen Not Detected; U Barbituate Screen Not Detected; U Benzodiazapine Screen DETECTED; U Buprenorphine Screen Not Detected; U Cannabinoids Screen Not Detected; U Cocaine Screen Not Detected; U Methadone Screen Not Detected; U Methamphetamine Screen Not Detected; U Opiates Screen DETECTED; U Oxycodone Screen DETECTED; U Phencyclidine Screen Not Detected; U Propoxyphene Screen Not Detected
[2020-07-02] MEDS ORDERED: CEPH500 PO (21:56)
[2020-07-02] MEDS ORDERED: Ativan1 MG PO (21:56)
== END 2020-07-02 23:01 | disposition home or self-care (01) ==
LOC: ER 14:14
PROVIDERS: Physician Assistant
DX: F10.239 Alcohol dependence with withdrawal, unspecified (principal); N39.0 Urinary tract infection, site not specified; E03.9 Hypothyroidism, unspecified; F41.9 Anxiety disorder, unspecified; F17.200 Nicotine dependence, unspecified, uncomplicated; Z79.899 Other long term (current) drug therapy; Z88.2 Allergy status to sulfonamides; Z88.5 Allergy status to narcotic agent; Z88.8 Allergy status to other drugs, medicaments and biological substances
CPT/HCPCS: 80053; 81001; 85025; 87077; 87086; 87186; 93005; 93010; 96361; 96374; 96375; 99285-25; A9270-GY; G0480; J2060; J2405; J7030

== ENCOUNTER 2020-09-02 14:58 | Inpatient (IN) | payer MEDICARE ==
[~2020-09-02] VITALS: Ht 170.2 cm; Wt 64.4 kg
[~2020-09-02 14:58] MED LIST changes: +Ativan1 MG PO; -CITA20 PO
[2020-09-02] MEDS ORDERED: METO25ER PO (16:11)
[2020-09-02] MEDS ORDERED: Ativan1 MG PO (16:11)
[2020-09-02 16:32] LABS: BASOPHILS ABSOLUTE AUTO 0.01 K/mm3 (0.00-0.23); BASOPHILS PERCENT AUTO 0 % (0-2); EOSINOPHILS ABSOLUTE AUTO 0.03 K/mm3 (0.00-0.68); EOSINOPHILS PERCENT AUTO 0 % (0-6); Hematocrit 33.3 % (33.0-51.0); Hemoglobin 11.8 g/dL (11.5-16.0); IMMATURE GRAN ABSOLUTE AUTO 0.05 K/mm3 (0.00-0.10); IMMATURE GRAN PERCENT AUTO 1 % (0-1); LYMPHOCYTES ABSOLUTE AUTO 1.53 K/mm3 (0.84-5.20); LYMPHOCYTES PERCENT AUTO 14 % (21-46); MONOCYTES ABSOLUTE AUTO 0.52 K/mm3 (0.16-1.47); MONOCYTES PERCENT AUTO 5 % (4-13); Mean Corpuscular HGB 33.1 pg (26.0-34.0); Mean Corpuscular HGB Conc 35.4 g/dL (31.5-36.5); Mean Corpuscular Volume 94 fL (80-100); Mean Platelet Volume 10.2 fL (9.1-12.4); NEUTROPHILS ABSOLUTE AUTO 8.97 K/mm3 (1.96-9.15); NEUTROPHILS PERCENT AUTO 81 % (41-73); Platelet Count 138 K/mm3 (150-400); RDW Coefficient Variation 12.5 % (11.7-14.2); RDW Standard Deviation 43.1 fL (35.1-46.3); Red Blood Cell Count 3.56 M/mm3 (3.80-5.20); White Blood Cell Count 11.11 K/mm3 (4.00-11.30)
[2020-09-02 16:47] LABS: Alanine Aminotransfer (ALT/SGP 28 U/L (12-78); Albumin, Blood 1.5 g/dL (3.4-5.0); Albumin/Globulin Ratio 0.4 (0.8-1.8); Alk Phos 164 U/L (50-136); Anion Gap 8 mmol/L (6-16); Aspartate Aminotrans (AST/SGOT 65 U/L (12-37); Bilirubin, Total 0.7 mg/dL (0.1-1.0); Blood Urea Nitrogen 4 mg/dL (8-24); Bun/Creatinine Ratio 9.5 (12.0-20.0); CO2, Blood 26 mmol/L (21-32); Calcium, Blood 7.8 mg/dL (8.5-10.1); Chloride, Blood 88 mmol/L (98-108); Creatinine, Blood 0.42 mg/dL (0.40-1.00); Glomerular Filtration Rate >60 (60-); Glucose, Blood 101 mg/dL (70-99); Potassium, Blood 4.2 mmol/L (3.5-5.5); Sodium, Blood 122 mmol/L (136-145); Total Protein, Blood 5.5 g/dL (6.4-8.2)
[2020-09-02 16:53] LABS: International Normalized Ratio 1.09; Prothrombin Time Results 11.6 Sec (9.7-11.5)
[2020-09-02 17:37] LABS: Free Thyroxine 0.72 ng/dL (0.70-1.60)
[2020-09-02 17:41] LABS: Triiodothyronine, Free <0.50 pg/mL (2.18-3.98)
[2020-09-02] MEDS ORDERED: CITA20 PO (18:03)
[2020-09-02 19:02] LABS: Influenza A, PCR Negative (NEGATIVE); Influenza B, PCR Negative (NEGATIVE); Resp Syncytial Virus, PCR Negative (NEGATIVE); SARS-Cov-2 (COVID-19) PCR, MMC Negative (NEGATIVE)
[2020-09-02 22:53] LABS: Source, Urine Catheter
[2020-09-02 22:56] LABS: Appearance, Urine Turbid (Clear); Bilirubin, Urine Neg (Neg); Blood, Urine 4+ (Neg); Color, Urine Brown (P-Yellow); Glucose Qualitative, Urine Neg (Neg); Ketones, Urine 1+ (Neg); Leukocyte Esterase, Urine 3+ (Neg); Nitrite, Urine Pos (Neg); Protein, Urine 3+ (Neg); Urobilinogen, Urine 1+ (Normal)
[2020-09-02 23:04] LABS: White Blood Cells, Urine TNTC /hpf (0-5)
[2020-09-02 23:05] LABS: Bacteria Many /hpf; Red Blood Cells, Urine 0-2 /hpf (0-2); Squamous Epithelial Cells Few /hpf (Few)
[2020-09-02 23:11] LABS: U Amphetamine Screen Not Detected; U Barbituate Screen Not Detected; U Benzodiazapine Screen Not Detected; U Buprenorphine Screen Not Detected; U Cannabinoids Screen DETECTED; U Cocaine Screen Not Detected; U Methadone Screen Not Detected; U Methamphetamine Screen Not Detected; U Opiates Screen Not Detected; U Oxycodone Screen Not Detected; U Phencyclidine Screen Not Detected; U Propoxyphene Screen Not Detected
--- NOTE | 2020-09-03 01:40 | NUR ---
Transfer from PCU to ICU-10 Pt transfered from PCU to ICU-10, accompined by William GONZALEZ and HEAD WAITRESS. Pt on RA, SPO2 > 90%. NSR (HR 90's). BP cuff switched from arm to small wrist cuff with MAP > 65, see vital flow sheet. Pt is A/O to location and event but unable to state correct date. Is a poor historian and easily becomes confused. Asking for her "black remote" multiple times. Per PCU nurse pts belongings were sent home with . Pt states understanding. Pt has visible tremors of upper extrems, pt states tremors "started a few days ago." CIWA score of 7. Pt states her last drink was on 09/02/20, 2 beers in the morning. Sacral decubitus ulcer present on admission, see pictures in chart. Pt denies pn at this time.
--- NOTE | 2020-09-03 02:19 | NUR ---
PCU SUMMARY PT ARRIVED TO THE UNIT WITH SIGNIFICANT PAIN TO COCCYX, HYPOTENSION, AND MILD CONFUSION. BP CONTINUED TO TREND DOWN, 1000NS BOLUS GIVEN AND BP TRENDED FLAT WITH 70'S SYSTOLIC AND MAP'S BELOW 65. PT SEEMED TO BECOME MORE CONFUSED. CALLED DR. NEWBY AND GOT ORDERS FOR TRANSFER TO ICU. PT ON PCU UNIT FOR SHORT TIME, UNABLE TO COMPLETE FULL ASSESSMENT. ADMISSION HX, HOME MED REC, AND INITIAL ADMISSION SCREENING COMPLETE. PT TRANSFERED TO ICU.
[2020-09-03 03:37] LABS: BASOPHILS PERCENT AUTO 0 % (0-2); EOSINOPHILS PERCENT AUTO 0 % (0-6); Hematocrit 28.8 % (33.0-51.0); Hemoglobin 9.9 g/dL (11.5-16.0); IMMATURE GRAN ABSOLUTE AUTO 0.04 K/mm3 (0.00-0.10); IMMATURE GRAN PERCENT AUTO 1 % (0-1); LYMPHOCYTES ABSOLUTE AUTO 1.37 K/mm3 (0.84-5.20); LYMPHOCYTES PERCENT AUTO 17 % (21-46); MONOCYTES ABSOLUTE AUTO 0.39 K/mm3 (0.16-1.47); MONOCYTES PERCENT AUTO 5 % (4-13); Mean Corpuscular HGB 32.9 pg (26.0-34.0); Mean Corpuscular HGB Conc 34.4 g/dL (31.5-36.5); Mean Corpuscular Volume 96 fL (80-100); NEUTROPHILS ABSOLUTE AUTO 6.23 K/mm3 (1.96-9.15); NEUTROPHILS PERCENT AUTO 78 % (41-73); Platelet Count 102 K/mm3 (150-400); RDW Coefficient Variation 12.8 % (11.7-14.2); RDW Standard Deviation 44.6 fL (35.1-46.3); Red Blood Cell Count 3.01 M/mm3 (3.80-5.20); White Blood Cell Count 8.03 K/mm3 (4.00-11.30)
[2020-09-03 03:55] LABS: Anion Gap 9 mmol/L (6-16); Blood Urea Nitrogen 3 mg/dL (8-24); Bun/Creatinine Ratio 7.4 (12.0-20.0); CO2, Blood 20 mmol/L (21-32); Calcium, Blood 6.8 mg/dL (8.5-10.1); Chloride, Blood 107 mmol/L (98-108); Glomerular Filtration Rate >60 (60-); Glucose, Blood 86 mg/dL (70-99); Potassium, Blood 2.7 mmol/L (3.5-5.5); Sodium, Blood 136 mmol/L (136-145)
--- NOTE | 2020-09-03 07:42 | NUR ---
Shift Summary Pt has levophed at 2 mcg/min via left AC IV, infusing well, Pt is A/O to location, event, but continues to be confused on date. She has been anxious t/o the shift, asks questions about care/medication. Sacral ulcer has been cleaned with wound cleanser and foam dressing has been applied. Pt has extensive skin breakdown/skin tears in various locations, please see wound assessment and pictures in chart. Pt states medication for pain is helpful. VSS and on RA. Will report to oncoming shift. Dr. Russell called for low potassium, new orders recieved.
--- NOTE | 2020-09-03 07:45 | NUR ---
ASSUMED CARE BEDSIDE REPORT RECIEVED. PT IS LAYING IN BED AWAKE, ALERT, AND ORIENTED TO SELF AND FOLLOWING DIRECTIONS. PT IS CONFUSED/FORGETFUL AT TIMES. PT WITH NOTABLE TREMOR WITH EXTREMITY MOVEMENT. PT IS RESTLESS IN BED. VITAL SIGNS STABLE AT THIS TIME. LEVOPHED INITIALLY INFUSING AT 2 MCG/MIN. PLACED ON STANDBY AT THIS TIME. NS INFUSING AT 100 ML/HR AND NS TKO WITH KCL IVPB. BUTT IN PLACE WITH YELLOW OUTPUT NOTED. PT WITH MULTIPLE SKIN TEARS AND VARIOUS WOUNDS. DRESSINGS C/D/I. SEE PHOTOS IN CHART. WILL CONTINUE TO MONITOR.
--- NOTE | 2020-09-03 09:18 | NUR ---
DR MICHELLE MARTINEZ BY TO SEE PT THIS AM. DISCUSSED PLANS FOR SURGERY ONCE PT ETOH WITHDRAWLS ARE UNDER CONTROL. WILL CONTINUE TO MONITOR.
[2020-09-03 11:01] LABS: BASOPHILS ABSOLUTE AUTO 0.01 K/mm3 (0.00-0.23); BASOPHILS PERCENT AUTO 0 % (0-2); EOSINOPHILS ABSOLUTE AUTO 0.02 K/mm3 (0.00-0.68); EOSINOPHILS PERCENT AUTO 0 % (0-6); Hematocrit 28.6 % (33.0-51.0); Hemoglobin 9.8 g/dL (11.5-16.0); IMMATURE GRAN ABSOLUTE AUTO 0.06 K/mm3 (0.00-0.10); IMMATURE GRAN PERCENT AUTO 1 % (0-1); LYMPHOCYTES ABSOLUTE AUTO 1.77 K/mm3 (0.84-5.20); LYMPHOCYTES PERCENT AUTO 18 % (21-46); MONOCYTES ABSOLUTE AUTO 0.39 K/mm3 (0.16-1.47); MONOCYTES PERCENT AUTO 4 % (4-13); Mean Corpuscular HGB 32.9 pg (26.0-34.0); Mean Corpuscular HGB Conc 34.3 g/dL (31.5-36.5); Mean Corpuscular Volume 96 fL (80-100); Mean Platelet Volume 10.1 fL (9.1-12.4); NEUTROPHILS ABSOLUTE AUTO 7.65 K/mm3 (1.96-9.15); NEUTROPHILS PERCENT AUTO 77 % (41-73); Platelet Count 119 K/mm3 (150-400); RDW Coefficient Variation 12.8 % (11.7-14.2); RDW Standard Deviation 44.4 fL (35.1-46.3); Red Blood Cell Count 2.98 M/mm3 (3.80-5.20)
--- NOTE | 2020-09-03 17:26 | NUR ---
SHIFT SUMMARY NO ACUTE CHANGES THIS SHIFT. PT IS MORE DROWSEY THIS EVENING. PT FOLLOWS SOME DIRECTIONS. PT IS FORGETFUL AND SPEECH IS NONSENSICAL AT TIMES. PT IS PAINFUL WITH REPOSITIONING. VITAL SIGNS HAVE REMAINED STABLE. PT ON ROOM AIR. PICC TO JAVIER C/D/I WITH NS INFUSING AT 100 ML/HR, NS TKO, AND LEVOPHED AT 5 MCG/MIN. BUTT IN PLACE WITH YELLOW URINE OUTPUT NOTED. PT WITH WOUNDS UNCHANGED. PT SIGNIFICANT OTHER IN TO SEE PT THIS AFTERNOON. WILL CONTINUE TO MONITOR AND REPORT OFF TO ONCOMING RN.
--- NOTE | 2020-09-03 21:00 | NUR ---
LAB CALL Lab called to state GI Panal unavailable. EDITH Hernandez called and updated. No new orders recieved. Asked to relay message to incoming hospitalist.
--- NOTE | 2020-09-03 22:01 | NUR ---
Care Assumed 1900 Pt is A/O to being in the hospital but is very drowy/easily falls asleep. Pt is confused/forgetful at times. Unable to give 2100 meds at this time. Pt states being tired and states she would like to sleep/take medication later. On levophed at 5 mcg/min, infusing via PICC to JAVIER, MAP > 65. NS infusing at 100 ml/hr. Pt has fragile skin, sacral dubcuitous ulcer with foam dressing in place. Heel protectors in place. Multiple skin tears. See skin/wound assessment/ pictures in chart. Jeter in place, draining to gravity. VSS. NSR. Pt remains on RA.
--- NOTE | 2020-09-04 00:54 | NUR ---
Update Pt continues to be drowsy/sleepy. States she is very tired and would like to sleep. Denies pain at this time except during Q 6 turns. CIWA score of 7. Upper extrems continue to have tremors. Levophed increased to 6 mcg/min to keep MAP > 65. NSR. RA.
[2020-09-04 04:34] LABS: BASOPHILS ABSOLUTE AUTO 0.01 K/mm3 (0.00-0.23); BASOPHILS PERCENT AUTO 0 % (0-2); EOSINOPHILS ABSOLUTE AUTO 0.03 K/mm3 (0.00-0.68); EOSINOPHILS PERCENT AUTO 0 % (0-6); Hemoglobin 9.8 g/dL (11.5-16.0); IMMATURE GRAN ABSOLUTE AUTO 0.04 K/mm3 (0.00-0.10); IMMATURE GRAN PERCENT AUTO 1 % (0-1); LYMPHOCYTES ABSOLUTE AUTO 1.71 K/mm3 (0.84-5.20); LYMPHOCYTES PERCENT AUTO 23 % (21-46); MONOCYTES PERCENT AUTO 4 % (4-13); Mean Corpuscular HGB Conc 33.8 g/dL (31.5-36.5); Mean Corpuscular Volume 98 fL (80-100); Mean Platelet Volume 10.1 fL (9.1-12.4); NEUTROPHILS ABSOLUTE AUTO 5.24 K/mm3 (1.96-9.15); NEUTROPHILS PERCENT AUTO 72 % (41-73); Platelet Count 95 K/mm3 (150-400); RDW Coefficient Variation 13.2 % (11.7-14.2); Red Blood Cell Count 2.97 M/mm3 (3.80-5.20); White Blood Cell Count 7.33 K/mm3 (4.00-11.30)
[2020-09-04 04:56] LABS: Alanine Aminotransfer (ALT/SGP 23 U/L (12-78); Albumin, Blood 1.1 g/dL (3.4-5.0); Albumin/Globulin Ratio 0.4 (0.8-1.8); Alk Phos 101 U/L (50-136); Anion Gap 9 mmol/L (6-16); Aspartate Aminotrans (AST/SGOT 43 U/L (12-37); Bilirubin, Direct 0.2 mg/dL (0.0-0.3); Bilirubin, Indirect 0.3 mg/dL (0.1-0.7); Bilirubin, Total 0.5 mg/dL (0.1-1.0); Blood Urea Nitrogen 2 mg/dL (8-24); Bun/Creatinine Ratio 4.6 (12.0-20.0); CO2, Blood 19 mmol/L (21-32); Calcium, Blood 6.8 mg/dL (8.5-10.1); Chloride, Blood 112 mmol/L (98-108); Creatinine, Blood 0.43 mg/dL (0.40-1.00); Globulin, Blood 3.1 g/dL (2.2-4.0); Glomerular Filtration Rate >60 (60-); Glucose, Blood 122 mg/dL (70-99); Magnesium, Blood 1.4 mg/dL (1.6-2.4); Phosphorus, Blood 2.3 mg/dL (2.5-4.9); Potassium, Blood 2.7 mmol/L (3.5-5.5); Sodium, Blood 140 mmol/L (136-145); Total Protein, Blood 4.2 g/dL (6.4-8.2)
--- NOTE | 2020-09-04 07:01 | NUR ---
Shift Summary Pt resting in bed. A little more awake around 0600 turn. A/O to being in [facility] and is very cooperative. Pain with turns but states she does not need medication at the moment. Slept the rest of the shift. Pt with wet productive cough (thick white phelgm). Levophed gtt 4 mcg/min, see flow sheet, MAP > 60. NSR. RA. No BM during shift. Will report to oncoming shift. Called Dr. Jackson for K 2.7, Phos 2.3, and Mg 1.4. Reiceved new orders, see emar.
--- NOTE | 2020-09-04 07:38 | NUR ---
AM NOTE.... ASSUMED CARE OF PT APROX 0700, PT IS SLEEPY, WAKES TO VERBAL STIMULI BUT IS UNABLE TO STAY AWAKE, PT IS ORIENTED TO HERSELF ONLY AT THIS TIME, WHEN ASKED IF SHE KNEW WHERE SHE WAS SHE SAID "YES, THE GATEWAY." SHE QUICKLY FELL BACK ASLEEP. PT IS IN NSR IN THE 70'S-80'S, BP IS HYPOTENSIVE ON LEVOPHED AT 5MCG/MIN TO KEEP MAPS>65 PER ORDERS. NO EDEMA IS NOTED ON ASSESSMENT. L/S COARSE T/O PT HAS A WEAK, LOOSE COUGH THAT HAS SO FAR BEEN NONPRODUCTIVE. BT PRESENT AND HYPOACTIVE, ABD IS SOFT BUT TENDER TO PALP PER PT. PT IS C/O OF 8/10 "ALL OVER" AND MOANS IN PAIN WITH ANY TYPE OF MOVEMENT. BUTT IS PATENT AND DRAINING CLEAR YELLOW URINE TO GRAVITY. WILL CONTINUE TO MONITOR.
[2020-09-04 10:08] LABS: BASOPHILS ABSOLUTE AUTO 0.01 K/mm3 (0.00-0.23); BASOPHILS PERCENT AUTO 0 % (0-2); EOSINOPHILS ABSOLUTE AUTO 0.03 K/mm3 (0.00-0.68); EOSINOPHILS PERCENT AUTO 0 % (0-6); Hematocrit 28.8 % (33.0-51.0); Hemoglobin 9.5 g/dL (11.5-16.0); IMMATURE GRAN ABSOLUTE AUTO 0.05 K/mm3 (0.00-0.10); IMMATURE GRAN PERCENT AUTO 1 % (0-1); LYMPHOCYTES ABSOLUTE AUTO 2.29 K/mm3 (0.84-5.20); LYMPHOCYTES PERCENT AUTO 26 % (21-46); MONOCYTES ABSOLUTE AUTO 0.31 K/mm3 (0.16-1.47); MONOCYTES PERCENT AUTO 4 % (4-13); Mean Corpuscular HGB 32.8 pg (26.0-34.0); Mean Corpuscular Volume 99 fL (80-100); Mean Platelet Volume 10.3 fL (9.1-12.4); NEUTROPHILS ABSOLUTE AUTO 6.23 K/mm3 (1.96-9.15); NEUTROPHILS PERCENT AUTO 70 % (41-73); Platelet Count 93 K/mm3 (150-400); RDW Coefficient Variation 13.3 % (11.7-14.2); RDW Standard Deviation 48.3 fL (35.1-46.3); White Blood Cell Count 8.92 K/mm3 (4.00-11.30)
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
--- NOTE | 2020-09-04 14:56 | NUR ---
PT JUNE... DR. SYED AT THE BEDSIDE FOR ASSESSMENT. BEDSIDE DEBRIDEMENT OF THE PT'S SACRAL PRESSURE ULCER WAS DONE. PER DR. AKINS HE WANTS DAILY DRESSING CHANGES WITH CALCIUM ALGINATE PLACED IN THE WOUND AND THE WOUND COVERED WITH THE PINK MEPILEX DRESSING. WILL CONTINUE TO MONITOR.
[2020-09-04 17:15] LABS: Bicarbonate Venous 16.3 mmol/L (24.0-30.0); PCO2 Venous 34.7 mmHg (38-42); PO2 Venous 73.6 mmHg (38-42)
[2020-09-04 17:16] LABS: pH Blood Venous 7.27 (7.34-7.37)
[2020-09-04 17:43] LABS: Anion Gap 8 mmol/L (6-16); Blood Urea Nitrogen 4 mg/dL (8-24); Bun/Creatinine Ratio 11.8 (12.0-20.0); CO2, Blood 17 mmol/L (21-32); Calcium, Blood 6.8 mg/dL (8.5-10.1); Chloride, Blood 110 mmol/L (98-108); Creatinine, Blood 0.34 mg/dL (0.40-1.00); Glomerular Filtration Rate >60 (60-); Glucose, Blood 164 mg/dL (70-99); Potassium, Blood 4.5 mmol/L (3.5-5.5); Sodium, Blood 135 mmol/L (136-145)
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
--- NOTE | 2020-09-04 22:31 | NUR ---
Drips Pt is also on a vasopressin drip 0.04 units/min infusing via JAVIER PICC. MAP > 65.
[2020-09-05 04:54] LABS: BASOPHILS ABSOLUTE AUTO 0.01 K/mm3 (0.00-0.23); BASOPHILS PERCENT AUTO 0 % (0-2); EOSINOPHILS ABSOLUTE AUTO 0.02 K/mm3 (0.00-0.68); EOSINOPHILS PERCENT AUTO 0 % (0-6); Hematocrit 28.8 % (33.0-51.0); Hemoglobin 9.5 g/dL (11.5-16.0); IMMATURE GRAN ABSOLUTE AUTO 0.07 K/mm3 (0.00-0.10); IMMATURE GRAN PERCENT AUTO 1 % (0-1); LYMPHOCYTES ABSOLUTE AUTO 1.44 K/mm3 (0.84-5.20); LYMPHOCYTES PERCENT AUTO 17 % (21-46); MONOCYTES PERCENT AUTO 4 % (4-13); Mean Corpuscular HGB 33.1 pg (26.0-34.0); Mean Corpuscular Volume 100 fL (80-100); Mean Platelet Volume 10.5 fL (9.1-12.4); NEUTROPHILS ABSOLUTE AUTO 6.83 K/mm3 (1.96-9.15); NEUTROPHILS PERCENT AUTO 79 % (41-73); Platelet Count 72 K/mm3 (150-400); RDW Coefficient Variation 13.6 % (11.7-14.2); RDW Standard Deviation 50.1 fL (35.1-46.3); Red Blood Cell Count 2.87 M/mm3 (3.80-5.20); White Blood Cell Count 8.67 K/mm3 (4.00-11.30)
[2020-09-05 05:09] LABS: Anion Gap 6 mmol/L (6-16); Blood Urea Nitrogen 9 mg/dL (8-24); Bun/Creatinine Ratio 22.1 (12.0-20.0); CO2, Blood 21 mmol/L (21-32); Calcium, Blood 6.9 mg/dL (8.5-10.1); Chloride, Blood 109 mmol/L (98-108); Creatinine, Blood 0.41 mg/dL (0.40-1.00); Glomerular Filtration Rate >60 (60-); Glucose, Blood 127 mg/dL (70-99); Magnesium, Blood 1.9 mg/dL (1.6-2.4); Phosphorus, Blood 2.9 mg/dL (2.5-4.9); Potassium, Blood 3.9 mmol/L (3.5-5.5); Sodium, Blood 136 mmol/L (136-145)
--- NOTE | 2020-09-05 06:21 | NUR ---
Shift summary Pt remains on Vasopressin 0.04 units/min. Attempted to titrate Norepinephrine and lowest rate where MAP > 65 is 7 mcg/min, infusing via PICC to JAVIER. Pt had loose brown medium BM. Pt more awake/oriented T/O shift. Able to hold conversations and call out to nurse. Knows the location is [place] and she is in the hospital. In pain during turns (04/18) lower back/neck pain, treated per emar. Lower back dressing C/D/I. Pt placed on 1 L via NC while sleeping due to spo2 88%, shallow breathing and snoring. Does not require O2 when awake. NSR. Will report to oncoming shift.
--- NOTE | 2020-09-05 07:26 | NUR ---
ASSUMED CARE PT RESTING IN BED C/O SEVERE PAIN AND IS CRYING. PAIN MEDICATION WAS GIVEN AT 0530 AND IS ONLY ORDERED Q4. VSS WITH LEVOPHED 7 AND VASPRESSON .04 RUNNING. WILL CONTACT MD FOR PRIVATE EQUITY ANALYST OR INCREASE IN PAIN MEDS.
--- NOTE | 2020-09-05 17:56 | NUR ---
SHIFT SUMMARY PT WAS IN PAIN AT THE BEGINNING OF THE SHIFT AND GOR PAIN MEDS CHANGED TO 12.5-25MCG Q2. THIS WORKED FOR A WHILE, BUT WHEN CHANGING THE DRESSING AND TURNING HER, SHE BEGAN TO SCREAM IN PAIN AGAIN AND WAS NOT ABLE TO GET IT BACK UNDER CONTROL, SO TECHNOLOGY COORDINATOR STARTED 12MCG/HR. VSS, LEVOPHED AT 7, VASOPRESSOR AT 2.4, 2L NC USED WHEN SLEEPING. PTS FIANCE CAME TO VISIT AND STAYED FOR A BIT, PATIENT SLEPT FOR MOST OF HIS VISIT. UPDATED HIM ON TECHNOLOGY COORDINATOR CONTINUOUS DRIP OF PAIN MEDS, HE SEEMED VERY HAPPY WITH THAT. PT HAD 2 INCONTINENT BM'S DURING THE SHIFT AND URINE OUTPUT WAS 575 TOTAL.
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
[2020-09-06 04:31] LABS: BASOPHILS ABSOLUTE AUTO 0.01 K/mm3 (0.00-0.23); BASOPHILS PERCENT AUTO 0 % (0-2); EOSINOPHILS ABSOLUTE AUTO 0.02 K/mm3 (0.00-0.68); EOSINOPHILS PERCENT AUTO 0 % (0-6); Hematocrit 30.1 % (33.0-51.0); Hemoglobin 10.1 g/dL (11.5-16.0); IMMATURE GRAN ABSOLUTE AUTO 0.03 K/mm3 (0.00-0.10); IMMATURE GRAN PERCENT AUTO 1 % (0-1); LYMPHOCYTES ABSOLUTE AUTO 1.42 K/mm3 (0.84-5.20); LYMPHOCYTES PERCENT AUTO 21 % (21-46); MONOCYTES ABSOLUTE AUTO 0.32 K/mm3 (0.16-1.47); MONOCYTES PERCENT AUTO 5 % (4-13); Mean Corpuscular HGB 33.1 pg (26.0-34.0); Mean Corpuscular HGB Conc 33.6 g/dL (31.5-36.5); Mean Corpuscular Volume 99 fL (80-100); Mean Platelet Volume 11.1 fL (9.1-12.4); NEUTROPHILS ABSOLUTE AUTO 4.85 K/mm3 (1.96-9.15); NEUTROPHILS PERCENT AUTO 73 % (41-73); Platelet Count 67 K/mm3 (150-400); RDW Coefficient Variation 13.6 % (11.7-14.2); RDW Standard Deviation 48.5 fL (35.1-46.3); Red Blood Cell Count 3.05 M/mm3 (3.80-5.20); White Blood Cell Count 6.65 K/mm3 (4.00-11.30)
--- NOTE | 2020-09-06 04:47 | NUR ---
DRESSING CHANGE DRESSING ON SACRUM WAS SOILED. OLD CALCIUM ALGINATE TAKEN OFF, WOUND CLEANED WITH WOUND AUCTION CLERK, DRIED WITH GAUZE 4X4, NEW CALCIUM ALGINATE APPLIED, MED CLOVER MEPILEX PLACED OVER. WOUND HAD A FAINT FOUL ODER AND SEROSANGUINOUS DRAINAGE. DRESSING TIMED/DATED/INITIALED.
[2020-09-06 04:57] LABS: Alanine Aminotransfer (ALT/SGP 24 U/L (12-78); Albumin, Blood 1.2 g/dL (3.4-5.0); Albumin/Globulin Ratio 0.4 (0.8-1.8); Alk Phos 104 U/L (50-136); Anion Gap 9 mmol/L (6-16); Aspartate Aminotrans (AST/SGOT 28 U/L (12-37); Bilirubin, Total 0.4 mg/dL (0.1-1.0); Blood Urea Nitrogen 8 mg/dL (8-24); Bun/Creatinine Ratio 19.4 (12.0-20.0); CO2, Blood 25 mmol/L (21-32); Chloride, Blood 101 mmol/L (98-108); Creatinine, Blood 0.41 mg/dL (0.40-1.00); Globulin, Blood 3.3 g/dL (2.2-4.0); Glomerular Filtration Rate >60 (60-); Glucose, Blood 127 mg/dL (70-99); Magnesium, Blood 1.3 mg/dL (1.6-2.4); Phosphorus, Blood 2.9 mg/dL (2.5-4.9); Potassium, Blood 2.5 mmol/L (3.5-5.5); Sodium, Blood 135 mmol/L (136-145); Total Protein, Blood 4.5 g/dL (6.4-8.2)
--- NOTE | 2020-09-06 05:44 | NUR ---
END OF SHIFT SUMMARY PT ALERT AND ORIENTED TO LOCATION BUT NOT TIME. PT STARTED OUT THE SHIFT MORE CONFUSED AND DROWSY, UNABLE TO HOLD A CONVERSATION. TOWARDS THE END OF SHIFT, PT IS ABLE TO ASK QUESTIONS APPROPRIATLY AND REFERENCE BACK TO PREVIOUS CONVERSATIONS WITH THIS RN. FENTANYL TRAVEL CONSULTANT INFUSING AT 12.5MCG/HR. PT STILL EXPRESSED PAIN DURING REPOSITIONING BUT LESS INTENSE THAN PREVIOUSLY. 1-3L NC T/O SHIFT, OCCATIONAL WET, WEAK COUGH WHERE PT SWALLOWS SECREATIONS. AFIBRILE. HR 60-80'S. SBP 90-105. MAP 65-87. LEVO TITRATED DOWN TO 6MCG/MIN; VASO INFUSING AT 0.04UNITS/MIN. PT HAD SMALL LOOSE BUT FORMED BM. BUTT PATENT AND DRAINING TO GRAVITY, 3.3L URINE OUTPUT. DRESSING ON SACRUM CHANGED, SEE PREVIOUS NOTE. POTASSIUM AND MAGANISIUM BEING REPLACED NOW. WILL REPORT TO AM RN WHEN AVAILABLE.
--- NOTE | 2020-09-06 07:42 | NUR ---
NURSE UPDATED DR. PEREZTRATE ON PATIENT STATUS. INFORMED THAT PATIENT LETHARGIC THIS AM AND NURSE IS CONCERNED ABOUT SWALLOWING STATUS. ORDER FOR SWALLOW EVAL RECEIVED. INFORMED THAT PATIENT HAD 3 L URINE OUTPUT OVERNIGHT PER DISCOUNT CLERK RN REPORT. INFORMED THAT PLATELETS CONTINUE TO DECREASE. INFORMED THAT REPLACEMENTS BEING GIVEN FOR MAGNESIUM AND POTASSIUM.
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
--- NOTE | 2020-09-06 10:38 | NUR ---
DR. BRODY INFORMED THAT PATIENT DOES NOT HAVE GOOD FLUID INTAKE AND THAT SHE DOES NOT HAVING MAINTENANCE FLUIDS. ORDER RECEIVED FOR LR AT 75 MLS/ HOUR. INFORMED THAT URINE POSITIVE FOR KLEBSIELLA AND WOUND POSITIVE FOR STREP AND BENOIT.
[2020-09-06 12:43] LABS: PCO2 Arterial 40.2 mmHg (35-45); PO2 Arterial 78.7 mmHg (80-100); pH Blood Arterial 7.41 (7.35-7.45)
[2020-09-06 13:08] LABS: Magnesium, Blood 1.9 mg/dL (1.6-2.4); Potassium, Blood 3.6 mmol/L (3.5-5.5)
--- NOTE | 2020-09-06 14:30 | NUR ---
DR. LING INFORMED THAT PATIENT'S TOES APPEAR MORE PURPLE THAN THEY WERE THIS AM. CAP REFILL APPEARS DELAYED. DR. LING CAME AND LOOKED AT. INFORMED THAT SPEECH THERAPIST RECOMMENDS PUREE DIET EVEN WITH DENTURES. INFORMED THAT PATIENT REALLY ISN'T INTERESTED IN EATING AND DOES NOT HAVE AN APPETITE. NO IV NUTRITION ORDERED AT THIS TIME. DOCTOR AWARE OF ABG RESULTS. INFORMED THAT LUNGS SOUND WET AND THAT PATIENT'S LAST CHEST XR ON THE . INFORMED THAT PATIENT'S O2 DECREASES WHEN PATIENT SLEEPS, EVEN DOWN TO THE 60S. STATES SHE WILL PUT ORDERS IN.
--- NOTE | 2020-09-06 14:40 | NUR ---
PATIENT AFEBRILE. PATIENT REMAINS ON FENTANYL WIND TURBINE SERVICE TECHNICIAN PUMP FOR PAIN. PATIENT EITHER SLEEPING OR AWAKE AND YELLING OUT FOR NURSE CONSTANTLY. PATIENT WILL BE CHECKED ON AND WHEN NURSE LEAVES SHE BEGINS YELLING FOR NURSE AGAIN. PATIENT WANTS NURSE TO STAY IN ROOM WITH HER. PATIENT IS ORIENTED TO HOSPITAL, TOWN, FAMILY, EVENT, FOLLOWING COMMANDS, AND SELF. PATIENT WAS NOT ORIENTED TO YEAR AND DATE. HR IN THE 60S TO 80S. SBP 90S TO LOW 100S. LEVOPHED AT 7 MCG/ MINUTE AND VASOPRESSIN AT 0.04 UNITS/ MINUTE. PATIENT ON RA TO 5 L NC TO KEEP SATS 90% AND GREATER. PATIENT DESATS WITH SLEEP. SCDS PLACED. LR STARTED AT 75 MLS/ HOUR.
--- NOTE | 2020-09-06 16:30 | NUR ---
PATIENT AFEBRILE. PATIENT REMAINS ON RA TO 5 L NC. PATIENT CONTINUES TO DESAT WHEN SLEEPING SOUNLY. PATIENT REMAINS IN SR AND HAS OCCASIONAL PACS. HR 60S TO 70S. SBP 80S TO 120S. LEVOPHED AT 8 MCG/ MINUTE AND VASOPRESSIN REMAINS AT SET RATE. ANTIBIOTICS SWITCHED UP BY DR. LING. SACRAL WOUND CLEANSED AND NEW CALCIUM ALGINATE AND MEPILEX DRESSING PLACED.
--- NOTE | 2020-09-06 18:46 | NUR ---
SHIFT SUMMARY PATIENT ALERT AND ORIENTED X 2 THIS AM AND IS NOW ALERT AND ORIENTED TO 3. PATIENT STILL DOES NOT REMEMBER DATE. PATIENT EITHER LETHARGIC AND SLEEPING OR AWAKE AND COMPLAINING ABOUT PAIN AND CALLING NURSE FROM ROOM CONSTANTLY. PATIENT HAS FLAT AFFECT AND IS ANXIOUS ABOUT PAIN AND BEING ALONE WHEN AWAKE. PATIENT REMAINED WEAK. PATIENT MOSTLY COMPLAINED ABOUT PAIN WITH MOVEMENT AND AFTER REPOSITIONING. OT AND PT SAW PATIENT TODAY. LUNGS REMAINED COARSE AND DIMINISHED. PATIENT RANGED FROM RA TO 5 L NC TO KEEP SATS 90% AND GREATER. O2 OKAY WHILE PATIENT AWAKE BUT SATTED DOWN TO THE 60S AT TIMES WITH SLEEP. PATIENT REMAINED IN SR, PROLONGED QT INTERVAL AND OCCASIONAL PACS. HR RANGED FROM 50S TO 80S. SBP 70S TO 120. LEVOPHED RANGED FROM 5 TO 8 MCG/ MINUTE AND VASOPRESSIN REMAINED AT 0.04 UNITS/ MINUTE. MIDODRINE STARTED THIS SHIFT. PATIENT HAD ASYMPTOMATIC 19 BEAT RUN OF VTACH. ECHO PERFORMED THIS SHIFT. PATIENT'S TOES PURPLE. TIBIAL PULSES DOPPLERED. PEDAL PULSES ABSENT. CAP REFILL GREATER THAN [address] LING IS AWARE. LOWER LEG DUPLEX PERFORMED. SCDS PLACED THIS SHIFT. PATIENT HAD ONE SMALL, BROWN, SOFT STOOL; PATIENT INCONTINENT. PATIENT HAS POOR NUTRITION. PATIENT DIDN'T ANYTHING TODAY UNTIL DINNER; HELPED HER. PATIENT HAD SWALLOW EVAL TODAY AND PLACED ON PUREE DIET EVEN THOUGH SHE HAS DENTURES SHE WAS HAVING A HARD TIME CHEWING FIRMER FOODS. BUTT DRAINED 500 MLS OF YELLOW COLORED URINE. OVERALL INTAKE OF 1780 MLS. NO CHANGE TO SKIN. PATIENT REPOSITIONED Q2H AND PRN. SACRAL WOUND CLEANSED AND NEW ALGINATE AND MEPILEX APPLIED. ZOSYN DC'D THIS SHIFT AND LEVAQUIN, VANCO AND FLAGYL GIVEN. LR INFUSING AT 75 MLS/ HOUR. PATIENT HAD 60 MEQ KCL AND 3 G MAGNESIUM TODAY TO REPLACE LOW AM LEVELS. PATIENT APPEARS COMFORTABLE AT THIS TIME. BED LOW, CALL LIGHT IN REACH. REPORT WILL BE GIVEN TO ASSUMING TELEPHONE ORDER SUPERVISOR NURSE SHORTLY.
[2020-09-07 04:39] LABS: BASOPHILS ABSOLUTE AUTO 0.01 K/mm3 (0.00-0.23); BASOPHILS PERCENT AUTO 0 % (0-2); EOSINOPHILS ABSOLUTE AUTO 0.01 K/mm3 (0.00-0.68); EOSINOPHILS PERCENT AUTO 0 % (0-6); Hematocrit 28.7 % (33.0-51.0); Hemoglobin 9.5 g/dL (11.5-16.0); IMMATURE GRAN ABSOLUTE AUTO 0.04 K/mm3 (0.00-0.10); IMMATURE GRAN PERCENT AUTO 1 % (0-1); LYMPHOCYTES ABSOLUTE AUTO 1.22 K/mm3 (0.84-5.20); LYMPHOCYTES PERCENT AUTO 16 % (21-46); MONOCYTES ABSOLUTE AUTO 0.45 K/mm3 (0.16-1.47); MONOCYTES PERCENT AUTO 6 % (4-13); Mean Corpuscular HGB 32.8 pg (26.0-34.0); Mean Corpuscular HGB Conc 33.1 g/dL (31.5-36.5); Mean Corpuscular Volume 99 fL (80-100); Mean Platelet Volume 11.3 fL (9.1-12.4); NEUTROPHILS ABSOLUTE AUTO 5.98 K/mm3 (1.96-9.15); NEUTROPHILS PERCENT AUTO 78 % (41-73); Platelet Count 50 K/mm3 (150-400); RDW Coefficient Variation 13.5 % (11.7-14.2); RDW Standard Deviation 48.7 fL (35.1-46.3); White Blood Cell Count 7.71 K/mm3 (4.00-11.30)
[2020-09-07 05:01] LABS: Anion Gap 7 mmol/L (6-16); Blood Urea Nitrogen 6 mg/dL (8-24); Bun/Creatinine Ratio 13.2 (12.0-20.0); CO2, Blood 25 mmol/L (21-32); Calcium, Blood 7.5 mg/dL (8.5-10.1); Chloride, Blood 101 mmol/L (98-108); Creatinine, Blood 0.46 mg/dL (0.40-1.00); Glomerular Filtration Rate >60 (60-); Glucose, Blood 161 mg/dL (70-99); Magnesium, Blood 1.9 mg/dL (1.6-2.4); Phosphorus, Blood 1.8 mg/dL (2.5-4.9); Potassium, Blood 3.1 mmol/L (3.5-5.5); Sodium, Blood 133 mmol/L (136-145); Vancomycin, Random 8.9 ug/mL
--- NOTE | 2020-09-07 06:29 | NUR ---
CALL PLACED TO DR GUEVARA RE PT LABS. ORDERS RECEIVED FOR KPHOS 20MM IV X 1.
--- NOTE | 2020-09-07 06:29 | NUR ---
SHIFT SUMMARY: NO ACUTE CHANGES T/O NIGHT. PTS SBP APPEARS MORE STABLE. WAS ON 2L NC BUT BIOX WAS 100% MAJORITY OF NIGHT. NC REMOVED AND PT BIOX NOW 98%. PT IS VERY PAINFUL WITH REPOSITIONINGS. MINIMAL URINE OUTPUT T/O SHIFT. PT HAD A SMALL BM. LINENS CHANGED. PT HAS A DECUB ULCER ON COCCYX. D/T BM DRESSING AND CALCIUM ALGINATE WAS REMOVED, WOUND WAS CLEANED, NEW DRESSING AND CALCIUM ALGINATE APPLIED. PT TOLERATED THAT WELL. WAS ABLE TO GIVE PO MEDS IN APPLESAUCE THIS MORNING.
--- NOTE | 2020-09-07 08:05 | NUR ---
INITIAL ASSESSMENT PATIENT ORIENTED TO ALL QUESTIONS THIS AM EXCEPT DATE. PATIENT HAS FLAT AFFECT AND IS ANXIOUS AT TIMES. PATIENT WEAK, DECONDITIONED AND CONTRACTED. PATIENT AFEBRILE. FENTANYL GUTTER INSTALLER INFUSING TO HELP WITH ALL OVER PAIN. PATIENT SEEMS COMFORTABLE UNTIL SHE IS REPOSITIONED OR TOUCHED. PATIENT SATTING 90% AND GREATER ON RA. LUNGS COARSE AND DIMINISHED THROUGHOUT. PATIENT HAS WEAK, MOIST COUGH. PATIENT IN SR WITH PROLONGED QT INTERVAL. HR 60S TO 70S. SBP IN THE 90S. LEVOPHED INFUSING AT 7 MCG/ MINUTE AND VASOPRESSIN AT 0.04 UNITS/ MINUTE. PATIENT RECEIVING SCHEDULED MIDODRINE THAT WAS STARTED YESTERDAY. PULSES IN FEET ARE DOPPLERED. TOES REMAIN PURPLE IN COLOR WITH DELAYED CAP REFILL NOTED. BUTT IN PLACE DRAINING YELLOW COLORED URINE. PATIENT ON PUREE DIET. SKIN IS DRY, FRAGILE AND BRUISED ALL OVER. SCATTERED ABRASIONS NOTED. ULCER TO SACRUM. DRESSINGS IN PLACE TO SACRUM AND ABRASIONS AND ARE CLEAN, DRY, INTACT. PATIENT IS RECEIVING VANCO, FLAGYL, AND LEVAQUIN. NS TKO. LR AT 75 MLS/ HOUR. FENTANYL GUTTER INSTALLER AT 12 MCG/ HOUR. PATIENT RECEIVING 20 MM KPHOS FOR POTASSIUM OF 3.1 AND PHOSPHORUS OF 1.8 THIS AM. BED LOW, CALL LIGHT IN REACH. WILL CONTINUE TO MONITOR PATIENT FREQUENTLY THROUGHOUT SHIFT.
--- NOTE | 2020-09-07 09:00 | NUR ---
UPDATED DR. LING ON PATIENT STATUS. INFORMED THAT PLATELETS 50, SODIUM 133, POTASSIUM 3.1, PHOSPHORUS 1.8 THIS AM. INFORMED THAT PATIENT RECEIVING 20 MM KPHOS AT THIS TIME. INFORMED THAT PEDAL AND TIBIAL PULSES WERE ABLE TO BE DOPPLERED THIS AM.
[2020-09-07 11:00] LABS: International Normalized Ratio 1.17; Prothrombin Time Results 12.4 Sec (9.7-11.5)
--- NOTE | 2020-09-07 12:10 | NUR ---
PATIENT AFEBRILE. NO SIGNS OF PAIN. PATIENT SATTING 90% OR GREATER ON RA WHILE AWAKE AND 1 L NC WHILE SOUND ASLEEP. HR 60S TO 80S. SBP 90S TO LOW 100S. ARGATROBAN STARTED AT 6.5 MLS/ HOUR. NO OTHER ACUTE CHANGES TO NOTE ON AT THIS TIME. WILL CONTINUE TO MONITOR.
--- NOTE | 2020-09-07 16:00 | NUR ---
PATIENT AFEBRILE. PAIN SEEMS CONTROLLED. HR 60S TO 70S. SBP 90S TO LOW 100S ON PRESSORS. NO ACUTE CHANGES TO NOTE ON AT THIS TIME.
--- NOTE | 2020-09-07 18:54 | NUR ---
SHIFT SUMMARY PATIENT REMAINED ORIENTED EXCEPT TO DATE. PATIENT REMAINED AFEBRILE. PATIENT'S PAIN MOSTLY CONTROLLED BY FENTANYL PSYCHOLOGIST RESEARCH ASSISTANT PUMP. PATIENT DID COMPLAIN ABOUT PAIN WITH REPOSITIONING/ MOVEMENT. LUNGS REMAINED COARSE AND DIM. PATIENT CONTINUED TO HAVE WEAK, MOIST COUGH. PATIENT REMAINED SATTING 90% AND GREATER ON RA TO 1 L NC. PATIENT REMAINED IN SR WITH PROLONGED QT INTERVAL. HR 60S TO 80S. SBP 90S TO LOW 100S. MIDODRINE DOSE INCREASED THIS SHIFT. FOOT PULSES DOPPLERED. PATIENT ATE SMALL AMOUNT AT EACH MEAL BUT REMAINS WITH POOR APPETITE. 1 SMALL, BROWN, SOFT BM THIS SHIFT. BUTT DRAINED 347 MLS OF URINE. NO CHANGE IN SKIN. SACRAL WOUND CLEANSED AND NEW CALCIUM ALGINATE AND MEPILEX DRESSING APPLIED. LEVOPHED RANGED BETWEEN 6 TO 8 MCG/ MINUTE AND VASOPRESSIN REMAINED AT 0.04 UNITS/ MINUTE. LR REMAINED AT 75 MLS/ HOUR. ARGATROBAN STARTED THIS SHIFT AND IS CURRENTLY AT 4.9 MLS/ HOUR. PATIENT HAD 20 MM KPHOS REPLACEMENT THIS SHIFT. PATIENT HAD COMPLETE BED BATH. CAME IN TO VISIT. PATIENT APPEARS COMFORTABLE AT THIS TIME. BED LOW, CALL LIGHT IN REACH. WILL CONTINUE TO MONITOR PATIENT FREQUENTLY THROUGHOUT SHIFT.
--- NOTE | 2020-09-07 19:26 | NUR ---
pt more alert today. remains on levophed at 6-8mcg. midodrine dosage increased. pt started on argatroban at 4.9ml/hr-pharmacy to manage. pt is in bed resting comfortably. vss
[2020-09-08 04:04] LABS: BASOPHILS PERCENT AUTO 0 % (0-2); EOSINOPHILS PERCENT AUTO 0 % (0-6); Hematocrit 25.7 % (33.0-51.0); Hemoglobin 8.5 g/dL (11.5-16.0); IMMATURE GRAN ABSOLUTE AUTO 0.04 K/mm3 (0.00-0.10); IMMATURE GRAN PERCENT AUTO 1 % (0-1); LYMPHOCYTES ABSOLUTE AUTO 1.08 K/mm3 (0.84-5.20); LYMPHOCYTES PERCENT AUTO 17 % (21-46); MONOCYTES ABSOLUTE AUTO 0.31 K/mm3 (0.16-1.47); MONOCYTES PERCENT AUTO 5 % (4-13); Mean Corpuscular HGB 32.8 pg (26.0-34.0); Mean Corpuscular HGB Conc 33.1 g/dL (31.5-36.5); Mean Corpuscular Volume 99 fL (80-100); Mean Platelet Volume 11.7 fL (9.1-12.4); NEUTROPHILS ABSOLUTE AUTO 4.94 K/mm3 (1.96-9.15); NEUTROPHILS PERCENT AUTO 78 % (41-73); RDW Coefficient Variation 13.7 % (11.7-14.2); RDW Standard Deviation 49.1 fL (35.1-46.3); Red Blood Cell Count 2.59 M/mm3 (3.80-5.20); White Blood Cell Count 6.37 K/mm3 (4.00-11.30)
[2020-09-08 04:13] LABS: Platelet Count 40 K/mm3 (150-400)
[2020-09-08 04:19] LABS: Alanine Aminotransfer (ALT/SGP 17 U/L (12-78); Albumin/Globulin Ratio 0.4 (0.8-1.8); Alk Phos 84 U/L (50-136); Anion Gap 5 mmol/L (6-16); Aspartate Aminotrans (AST/SGOT 21 U/L (12-37); Bilirubin, Total 0.2 mg/dL (0.1-1.0); Blood Urea Nitrogen 13 mg/dL (8-24); Bun/Creatinine Ratio 22.8 (12.0-20.0); CO2, Blood 27 mmol/L (21-32); Calcium, Blood 7.8 mg/dL (8.5-10.1); Chloride, Blood 101 mmol/L (98-108); Creatinine, Blood 0.57 mg/dL (0.40-1.00); Globulin, Blood 2.8 g/dL (2.2-4.0); Glomerular Filtration Rate >60 (60-); Glucose, Blood 142 mg/dL (70-99); Magnesium, Blood 1.6 mg/dL (1.6-2.4); Phosphorus, Blood 2.7 mg/dL (2.5-4.9); Potassium, Blood 3.5 mmol/L (3.5-5.5); Sodium, Blood 133 mmol/L (136-145); Total Protein, Blood 3.8 g/dL (6.4-8.2)
--- NOTE | 2020-09-08 06:35 | NUR ---
PT WAS ABLE TO GET SOME REST T/O NIGHT. DOES NOT TOLERATE REPOSITIONING WELL HOWEVER DOES UNDERSTAND ITS NECESSARY. AROUND MIDNIGHT IT WAS FOUND THAT HER [place]PAIN WAS COVERED IN URINE. ASSESSED BUTT AND FOUND THAT THERE WAS ONLY 8MLS OF NS IN THE 10ML BALLOON. AN ADDITIONAL 2MLS WAS INSTILLED AND IT IS NOW PATENT AND PT HAS BEEN DRY EXCEPT FOR 2 LOOSE BMS. PT WAS MORE ALERT AND TALKATIVE. WAS ABLE TO TITRATE PRESSERS DOWN. VASOPRESSIN IS ON SB. LEVO AT 4. ARGATROBAN GTT AT 3.2MLS/HR. DRESSING TO DECUB ULCER ON COCCYX CHANGED. WOUND WAS CLEANED AND REPACKED WELL. PT IS ON 2LNC, SOI2 AT 100%. ON RA SHE DESATS TO HIGH 80S.
--- NOTE | 2020-09-08 08:05 | NUR ---
INITIAL ASSESSMENT PATIENT ALERT AND ORIENTED X 3. PATIENT DISORIENTED TO YEAR. PATIENT HAS FLAT AFFECT. PATIENT ANXIOUS WHEN NURSE IS NOT IN THE ROOM AND CALLS OUT "NURSE" OVER AND OVER. PATIENT HAS SLURRED SPEECH AT TIMES. PATIENT WEAK AND DECONDITIONED. KNEES CONTRACTED AND LETS CANNOT STRAIGHTEN. PAIN APPEARS MANAGEABLE EXCEPT WHEN PATIENT IS REPOSITIONED. PATIENT AFEBRILE. LUNGS COARSE AND DIMINISHED THROUGHOUT. PATIENT HAS WEAK, MOIST, NONPRODUCTIVE COUGH. PATIENT SATTING 90% AND GREATER ON RA WHILE AWAKE AND ON 3 L WHILE SLEEPING. PATIENT IN SR WITH PROLONGED QT. HR 70S TO 80S. SBP IN THE 90S. TOES ARE PINKER AND LESS PURPLE THAN YESTERDAY. ALL PULSES IN FEET OR FAINT TO PALPATION. ABDOMEN TENDER WITH PALPATION; HYPERACTIVE BS NOTED. PATIENT HAS POOR APPETITE. ON PUREE DIET. BUTT DRAINING YELLOW COLORED URINE. SKIN DRY, FRAGILE, BRUISED. ABRASION SCATTERED WITH DRESSINGS IN PLACE. DRESSING C/D/I TO SACRAL WOUND. PATIENT BEING REPOSITIONED Q2H. ARGATROBAN INFUSING AT 3.2 MLS/ HOUR, LEVOPHED AT 4 MCG/ MINUTE, VASOPRESSIN AT 0.04 UNITS/ MINUTE, NS TKO, LR AT 75 MLS/ HOUR AND FENTANYL DRY CELL TESTER PUMP AT 12 MCG/ HOUR. BED LOW, CALL LIGHT IN REACH. WILL CONTINUE TO MONITOR PATIENT FREQUENTLY THROUGHOUT SHIFT.
--- NOTE | 2020-09-08 12:00 | NUR ---
PATIENT AFEBRILE. HR 80S TO LOW 100S. SBP 90S TO LOW 100S. PATIENT HAVING LOOSE STOOLS. SACRAL WOUND CLEANSED AND NEW CALCIUM ALGINATE AND MEPILEX DRESSING APPLIED. NO OTHER ACUTE CHANGES TO NOTE ON AT THIS TIME. WILL CONTINUE TO MONITOR.
--- NOTE | 2020-09-08 16:00 | NUR ---
PATIENT AFEBRILE. PATIENT DOES NOT APPEAR TO BE IN ANY PAIN. HR 60S TO 80S. SBP 60S TO 80S. SBP 90S TO LOW 100S. NO OTHER ACUTE CHANGES TO NOTE ON AT THIS TIME.
--- NOTE | 2020-09-08 18:48 | NUR ---
SHIFT SUMMARY PATIENT REMAINED MOSTLY ORIENTED. PATIENT ANXIOUS AND CALLING OUT FOR NURSE WHEN NURSE NOT IN ROOM. PATIENT REMAINED WEAK. PATIENT REMAINED AFEBRILE. PATIENT REMAINED SATTING 90% AND GREATER ON RA TO 3 L NC. LUNGS REMAINED COARSE AND DIM. PATIENT CONTINUED TO HAVE WEAK, MOIST, NONPRODUCTIVE COUGH. PATIENT REMAINED IN SR WITH PROLONGED QT, HR 70S TO LOW 100S. SBP HIGH 70S TO LOW 100S. PATIENT REMAINED ON LEVOPHED AT 4 MCG/ MINUTE. VASOPRESSIN INFUSING ALL OF SHIFT UNTIL VERY SHORT TIME AGO. MIDODRINE DOSE INCREASED AGAIN TODAY. COLOR OF TOES IS IMPROVED TODAY FROM YESTERDAY. PATIENT HAD ONE SMALL LOOSE STOOL. PATIENT ATE VERY SMALL AMOUNTS AT EACH MEAL. BUTT DRAINED 410 MLS OF DARK YELLOW COLORED URINE. NO CHANGES TO SKIN. SACRAL WOUND CLEANSED AND NEW DRESSING APPLIED THIS SHIFT. ARGATROBAN REMAINS INFUSING AT 3.2 MLS/ HOUR, NS TKO, FENTANYL PUMP AT 12 MCG/ HOUR. PATIENT APPEARS COMFORTABLE AT THIS TIME. BED LOW, CALL LIGHT IN REACH. REPORT WILL BE GIVEN TO ONCOMING SWIM INSTRUCTOR NURSE SHORTLY.
--- NOTE | 2020-09-08 20:00 | NUR ---
ASSUMED PT CARE BEDSIDE REPORT WITH DE GONZALEZ AT 1905. ASSUMED PT CARE. PT ALERT AND ORIENTED. ANSWERS QUESTIONS SLOWLY. PT HAS TL PICC TO JAVIER, SITE WNL, BRUISING TO BICEP AREA, DRESSING INTACT. PT HAS LEVOPHED INF @5MCG/MIN, AGATROBAN INF @3.2ML/HR, NS @10ML/HR, FENTANYL INF @12MCG/HR. PT MOVES ARMS FREELY. PT LEGS SOMEWHAT CONTRACTURED, UNABLE TO MOVE WELL. PT HAS EXTENSIVE ULCERATION TO COCCYX, DRESSING INTACT. CLEAN AND DRY. FOAM DRESSINGS TO OTHER SORES ALSO. PT HAS BUTT DRAINING WELL. PT HAS POOR APPETITE AND PARTICIPATES MINIMALLY IN CARE. SEE FULL SHIFT ASSESSMENT.
[2020-09-09 04:41] LABS: BASOPHILS ABSOLUTE AUTO 0.01 K/mm3 (0.00-0.23); BASOPHILS PERCENT AUTO 0 % (0-2); EOSINOPHILS ABSOLUTE AUTO 0.03 K/mm3 (0.00-0.68); EOSINOPHILS PERCENT AUTO 0 % (0-6); Hematocrit 29.4 % (33.0-51.0); Hemoglobin 9.7 g/dL (11.5-16.0); IMMATURE GRAN ABSOLUTE AUTO 0.04 K/mm3 (0.00-0.10); IMMATURE GRAN PERCENT AUTO 1 % (0-1); LYMPHOCYTES ABSOLUTE AUTO 1.76 K/mm3 (0.84-5.20); LYMPHOCYTES PERCENT AUTO 20 % (21-46); MONOCYTES ABSOLUTE AUTO 0.65 K/mm3 (0.16-1.47); MONOCYTES PERCENT AUTO 7 % (4-13); Mean Corpuscular HGB 32.9 pg (26.0-34.0); Mean Corpuscular Volume 100 fL (80-100); Mean Platelet Volume 12.1 fL (9.1-12.4); NEUTROPHILS ABSOLUTE AUTO 6.38 K/mm3 (1.96-9.15); NEUTROPHILS PERCENT AUTO 72 % (41-73); Platelet Count 60 K/mm3 (150-400); RDW Coefficient Variation 13.8 % (11.7-14.2); RDW Standard Deviation 49.8 fL (35.1-46.3); Red Blood Cell Count 2.95 M/mm3 (3.80-5.20); White Blood Cell Count 8.87 K/mm3 (4.00-11.30)
[2020-09-09 04:59] LABS: Anion Gap 5 mmol/L (6-16); Blood Urea Nitrogen 20 mg/dL (8-24); Bun/Creatinine Ratio 27.2 (12.0-20.0); CO2, Blood 26 mmol/L (21-32); Calcium, Blood 8.8 mg/dL (8.5-10.1); Chloride, Blood 103 mmol/L (98-108); Creatinine, Blood 0.74 mg/dL (0.40-1.00); Glomerular Filtration Rate >60 (60-); Glucose, Blood 123 mg/dL (70-99); Magnesium, Blood 1.6 mg/dL (1.6-2.4); Phosphorus, Blood 2.7 mg/dL (2.5-4.9); Potassium, Blood 3.6 mmol/L (3.5-5.5); Sodium, Blood 134 mmol/L (136-145); Vancomycin, Trough 15.7 ug/mL (5.0-10.0)
--- NOTE | 2020-09-09 06:35 | NUR ---
SHIFT SUMMARY PT HAD UNEVENFUL NIGHT. REMAINS ALERT AND ORIENTED X3. PT VERY REPATATIVE, DOES NOT USE CALL LIGHT, CONSTANTLY CALLS OUT FOR "NURSE". PT ANXIOUS WHEN ALONE. DECLINES MUSIC AND TV. PT REFUSES SOME TURNS AND IS MINIMALLY INVOLVED IN CARE. PT HAS TL PICC TO JAVIER WITH LEVOPHED INF @10MCG/MIN, NS INF @10ML/HR, ARGATROBAN INF @3.2ML/HR, FENTANYL INF @12MCG/HR. ABX INF PER EMAR. PICC LINE SITE WNL, BRUISED BUT NOT TENDER. DRESSING C/D/I. BUTT DRAINGING CLEAR YELLOW URINE. ABD SOFT AND NONTENDER. PT ABLE TO MOVE ARMS SOME. NOT ABLE TO REPOSITION INDEPENDENTLY OR MOVE LEGS. LUNG SOUNDS COARSE AND DIMINISHED. PT COUGH STRONGER AND PT ABLE TO CLEAR MOST SECRETIONS. PT ON 3L 02 PER NC, SATS >92%. DRESSINGS TO MULT SORES C/D/I. WILL REPORT TO ONCOMING SHIFT.
--- NOTE | 2020-09-09 08:30 | NUR ---
ASSUMED CARE BEDSIDE REPORT FROM YENNI GONZALEZ AT 0700. PT RESTING IN BED. RESPONSES TO VERBAL STIMULI. ANSWERS QUESTIONS APPROPRIATELY. FOLLOW COMMANDS. PT A&OX 3. C/O PAIN c ANY MOVEMENT OR CARE. FENTANYL MANAGER PROCESS AT 12 MCG/HR. PT APPEARS TO REST COMFORTABLY WHEN UNDISTURBED. LUNGS COARSE, DIMINISHED IN BASES. SHALLOW RESP. MOIST COUGH, PT SPITTING INTO TISSUES. 2L O2 VIA NC. SR, RATE 90. LEVOPHED GTT FOR MAP >65. INFUSING VIA PICC TO LUE. WILL CHANGE DRESSING THIS SHIFT. ARGATROBAN GTT 3.2 ML/HR, PHARMACY TO MANAGE. SKIN IN POOR CONDITION, SEE ASSESSMENT AND CHART PHOTOS. q2 HR TURNS. PT REFUSED BREAKFAST TRAY. TOOK MEDS c APPLESAUCE. WILL CONTINUE TO MONITOR.
[2020-09-09 14:10] LABS: HEPARIN INDUCED PLATELET AB 0.113 OD (0.000-0.400)
--- NOTE | 2020-09-09 18:24 | NUR ---
SHIFT SUMMARY NO ACUTE CHANGES THIS SHIFT. ALL DRESSINGS CHANGED. CONTINUED TO TITRATE LEVOPHED FOR MAP >[address] STOREY. MIDODRINE INCREASED TO 20 MG TID, SOLUCORTEF ADDED. DOBHOFF PLACED FOR NUTRITION D/T POOR PO INTAKE. TOLERATED WELL. JEVITY 1.5 STARTED AT 25 ML/HR c 30 ML FLUSHES q4 HR. GOAL 45 ML/HR. BUTT PATENT, DRAINING TO GRAVITY, 1450 ML CLOUDY YELLOW URINE OUT. WILL CONTINUE TO MONITOR UNTIL REPORT TO ONCOMING NURSE.
--- NOTE | 2020-09-09 19:10 | NUR ---
ASSUMED PT CARE BEDSIDE REPORT WITH JAIME GONZALEZ AT 1900, ASSUMED PT CARE. PT ALERT TO SELF AND SURROUNDINGS. FOLLOWS COMMANDS. ANSWERS QUESTIONS. PT ANXIOUS BUT EASILY CONSOLED. DERSSINGS TO WOUNDS CHANGED DURING DAY SHIFT. ALL ARE CURRENTLY C/D/I. PT C/O CONSTANT PAIN, FENT SHELVING SUPERVISOR INF AT 12MCG/HR. SKIN FRAGILE AND BRUISED. ABD SOFT AND TENDER AT TIMES. BOWEL SOUNDS HYPERACTIVE. BUTT DRAINING CLEAR PALE YELLOW URINE. DOBHOFF IN PLACE TO RIGHT NARE WITH JEVITY INF @25ML/HR. CALL LIGHT IN REACH. PT HAS TL PICC TO JAVIER WITH LEVOPHED INF @6MCG/MIN, ARGATROBAN INF @3.2ML/HR, NS INF @10ML/HR, FENTANYL INF @12MCG/HR. DRESSING INTACT. SITE BRUISED BUT INTACT. SEE FULL SHIFT ASSESSMENT.
[2020-09-10 05:07] LABS: BASOPHILS ABSOLUTE AUTO 0.01 K/mm3 (0.00-0.23); BASOPHILS PERCENT AUTO 0 % (0-2); EOSINOPHILS PERCENT AUTO 0 % (0-6); Hematocrit 27.2 % (33.0-51.0); IMMATURE GRAN ABSOLUTE AUTO 0.03 K/mm3 (0.00-0.10); IMMATURE GRAN PERCENT AUTO 1 % (0-1); LYMPHOCYTES ABSOLUTE AUTO 0.64 K/mm3 (0.84-5.20); LYMPHOCYTES PERCENT AUTO 10 % (21-46); MONOCYTES PERCENT AUTO 3 % (4-13); Mean Corpuscular HGB 33.1 pg (26.0-34.0); Mean Corpuscular HGB Conc 33.1 g/dL (31.5-36.5); Mean Corpuscular Volume 100 fL (80-100); Mean Platelet Volume 12.7 fL (9.1-12.4); NEUTROPHILS ABSOLUTE AUTO 5.74 K/mm3 (1.96-9.15); NEUTROPHILS PERCENT AUTO 87 % (41-73); NRBC ABSOLUTE 0.02 K/mm3 (0.00-0.02); NRBC Auto 0.3 /100 WBC (0.0-0.2); RDW Coefficient Variation 14.1 % (11.7-14.2); RDW Standard Deviation 51.3 fL (35.1-46.3); Red Blood Cell Count 2.72 M/mm3 (3.80-5.20); White Blood Cell Count 6.62 K/mm3 (4.00-11.30)
[2020-09-10 05:20] LABS: Anion Gap 5 mmol/L (6-16); Blood Urea Nitrogen 27 mg/dL (8-24); Bun/Creatinine Ratio 30.6 (12.0-20.0); CO2, Blood 28 mmol/L (21-32); Chloride, Blood 110 mmol/L (98-108); Creatinine, Blood 0.88 mg/dL (0.40-1.00); Glomerular Filtration Rate >60 (60-); Glucose, Blood 149 mg/dL (70-99); Magnesium, Blood 1.7 mg/dL (1.6-2.4); Phosphorus, Blood 2.7 mg/dL (2.5-4.9); Potassium, Blood 3.6 mmol/L (3.5-5.5); Sodium, Blood 143 mmol/L (136-145)
[2020-09-10 05:26] LABS: Platelet Count 49 K/mm3 (150-400)
--- NOTE | 2020-09-10 06:49 | NUR ---
SHIFT SUMMARY PT HAD UNEVENTFUL NIGHT. REMAINS ALERT TO SELF AND SURROUNDINGS. CONTINUES TO BE ANXIOUS AND FRETFUL CONSTANTLY. PT HAS TL PICC TO JAVIER WITH LEVOPHED INF @2MCG/MIN, NS @10ML/HR, ARGATROBAN INF @3.2ML/HR AND INTERMITTENT ABX AND ELECTROLYTE REPLACEMENT. DRESSING C/D/I. BAXTERS CLEAN THIS AM, NO STOOL. BUTT PATENT AND DRAINING. DOBHOFF IN PLACE TO RIGHT NARE WITH JEVITY INF @35ML/HR. PT SURYA FEEDS WELL. ABD SOFT. LUNG SOUNDS COARSE, PT HAS GOOD COUGH NOW. 2L O2 PER NC, SATS >92%. PT SR. PER DR STOREY TITRATE LEVOPHED FOR MAP OF >60. CALL LIGHT REMAINS IN REACH. WILL REPORT TO ONCOMING SHIFT.
--- NOTE | 2020-09-10 07:15 | NUR ---
ASSUMED CARE PATIENT RESTING IN BED WITH VSS, LEVO @ 2, FENT @ 12, AGATRO @ 3.2, MAG SULPHATE, AND JEVITY TF @ 35.
--- NOTE | 2020-09-10 07:49 | NUR ---
CRITICAL VALUE NOTICED AFTER REPORT RECIEVED THAT PLT IS CRITICAL LOW AT 49. NO CHARTING OF MD NOTIFICATION, SO DR. BERMUDEZ CALLED AND INFORMED
--- NOTE | 2020-09-10 09:35 | NUR ---
AT 0900, DR. STOREY ASKED FOR LEVO TO BE STOPPED. AT 0915 BP DROPPED TO 73/42 WITH MAP OF 53. LEVO RESTARTED AND BP UP TO 94/63 WITH MAP OF 71. INFORMED DR STOREY, VERBAL ORDER FOR DECREASE LEVO TO 1MCG/MIN FROM 2MCG/MIN AT 0925. BP TAKEN AT 0935- 83/62 WITH MAP OF 76. WILL CONTINUE TO MONITOR
--- NOTE | 2020-09-10 10:10 | NUR ---
PT'S BP DROPPED AT 10:00 TO 74/53 AFTER WENT DOWN ON LEVO TO 1 MCG/MIN AT 10:02. TURNED LEVO BACK UP TO 2 MCG/MIN, AND AT 10:04 BP UP TO 83/55. WILL CONTINUE TO MONITOR
--- NOTE | 2020-09-10 10:58 | NUR ---
FENTANYL DRIP D/C TO SEE IF HELPS WITH BLOOD PRESSURES. FENTANYL PATCH PLACED, STILL HAVE 25MCG Q2 FOR BREAKTHROUGH PAIN. WILL CONTINUE TO MONITOR
--- NOTE | 2020-09-10 14:15 | NUR ---
Echocardiogram completed.
--- NOTE | 2020-09-10 19:00 | NUR ---
ASSUMED CARE ASSUMED CARE OF PATIENT. ROUSES EASILY TO VERBAL STIMULI. ANSWERS YES/NO QUESTIONS APPROPRIATELY, OTHERWISE PT JUST MOANS AND SAYS "OW". MOVES ALL EXTREMITIES WEAKLY. MONITOR SHOWS NSR, RATE 70s. LEVOPHED INFUSING AT 2MCG/MIN TO MAINTAIN MAP >65. 2L NC TO MAINTAIN SATS >92%. RESPIRATIONS SHALLOW, BUT EVEN AND UNLABORED. LR INFUSING AT 20CC/HR PER ORDER. JAVIER PICC NOTED. BUTT PATENT AND DRAINING TO GRAVITY. SCATTERED BRUISES AND SKIN TEARS NOTED. DRSG D/I TO COCCYX. SEE SHIFT ASSESSMENT FOR FULL ASSESSMENT.
[2020-09-11 05:34] LABS: Hematocrit 29.5 % (33.0-51.0); Hemoglobin 9.5 g/dL (11.5-16.0); Mean Corpuscular HGB 32.6 pg (26.0-34.0); Mean Corpuscular HGB Conc 32.2 g/dL (31.5-36.5); Mean Corpuscular Volume 101 fL (80-100); Mean Platelet Volume 12.7 fL (9.1-12.4); Platelet Count 54 K/mm3 (150-400); RDW Coefficient Variation 14.2 % (11.7-14.2); RDW Standard Deviation 51.6 fL (35.1-46.3); Red Blood Cell Count 2.91 M/mm3 (3.80-5.20); White Blood Cell Count 12.77 K/mm3 (4.00-11.30)
[2020-09-11 06:10] LABS: Anion Gap 4 mmol/L (6-16); Blood Urea Nitrogen 34 mg/dL (8-24); Bun/Creatinine Ratio 39.5 (12.0-20.0); CO2, Blood 29 mmol/L (21-32); Chloride, Blood 109 mmol/L (98-108); Creatinine, Blood 0.86 mg/dL (0.40-1.00); Glomerular Filtration Rate >60 (60-); Glucose, Blood 150 mg/dL (70-99); Magnesium, Blood 2.1 mg/dL (1.6-2.4); Phosphorus, Blood 2.2 mg/dL (2.5-4.9); Potassium, Blood 3.9 mmol/L (3.5-5.5); Sodium, Blood 142 mmol/L (136-145)
[2020-09-11 06:24] LABS: BASOPHILS PERCENT MAN 0 % (0-2); EOSINOPHILS PERCENT MAN 0 % (0-6); LYMPHOCYTES ABSOLUTE MAN 0.89 K/mm3 (0.84-5.20); LYMPHOCYTES PERCENT MAN 7 % (21-46); MONOCYTES ABSOLUTE MAN 0.25 K/mm3 (0.16-1.47); MONOCYTES PERCENT MAN 2 % (4-13); NEUTROPHILS ABSOLUTE MAN 11.62 K/mm3 (1.96-9.15); SEG NEUTROPHILS PERCENT MAN 91 % (41-73); TOTAL CELLS COUNTED 100
--- NOTE | 2020-09-11 06:42 | NUR ---
SHIFT SUMMARY NO ACUTE CHANGES. PT CONTINUES TO MOAN AND CRY OUT "OW". OTHERWISE VERBAL RESPONSE IS MOSTLY ANSWERING YES/NO QUESITON. MEDICATED WITH FENTANYL 25MCG IV X 5 DOSES DURING SHIFT WITH MODERATE RELIEF. REMAINS ON 2L NC- SATS >92%. RESPIRATIONS SHALLOW, BUT EVEN AND UNLABORED. OCCASIONAL MOIST COUGH- NT SUCTIONED X 2 DURING SHIFT WITH MODERATE AMOUNTS OF CREAMY VELÁZQUEZ/YELLOW SPUTUM. LEVOPHED INFUSED BETWEEN 1-2.5MCG/MIN TO MAINTAIN MAP >60-65- HAS NOW BEEN OFF SINCE 529. TUBE FEEDING AT GOAL RATE OF 40CC/HR VIA DOBHOFF. INCONTINENT OF LOOSE STOOL X 4. BUTT PATENT AND DRAINING TO GRAVITY. WILL REPORT TO ONCOMING RN WHEN AVAILABLE.
--- NOTE | 2020-09-11 07:28 | NUR ---
ASSUMED CAR PT RESTING IN BED WITH TF RUNNING AT GOAL (40), LEVO IS OFF. PT STILL MOANS IN PAIN, RESISTANT TO MOUTH CARE. DOPPLER PULSES ON LOWER EXTREMITIES, SLIGHT EDEMA NOTED ON BL FEET THIS AM. WILL CONTINUE TO MONITOR
[2020-09-11 10:52] LABS: Vancomycin, Random 19.2 ug/mL
--- NOTE | 2020-09-11 11:36 | NUR ---
PT SEEMS TO BE DECLINING. PT DOES NOT REALLY VERBALIZE NOW, JUST MOANS. GURGLING SOUNDS IN THROAT, HAVE HAD TO DEEP SUCTION 4 TIMES WITH THICK MUCOUS RESULTING. CONSERNED FOR ASPIRATION, WAITING FOR MD TO FINISH WITH A PROCEDURE TO TALK TO HIM FOR CHEST XRAY
--- NOTE | 2020-09-11 15:25 | NUR ---
FENTANYL PATCH REMOVED AND DISPOSED OF IN MEDICAL NARCOTIC WASTE BIN. WITNESSED BY VICTORIA WYMAN RN
--- NOTE | 2020-09-11 18:22 | NUR ---
PT STILL ONLY MOANING MOST OF THE DAY. WILL FOLLOW COMMANDS AND SOMETIMES ANSWER QUESTIONS WITH SINGLE ANSWERS. DRESSING CHANGED ON SACRAL WOUND, CLEANED AND REPACKED. VELÁZQUEZ SLOTH AND ODOR NOTED. LEVO REMAINED OFF ALL DAY, ARGATROBAN RESTARTED WITH GOAL OF PTT 1.5 - 3 X NORMAL. FENTANYL DRIP RESTARTED FOR PAIN CONTROL, CONTINUOUS AT 20MCG. BLOOD PRESSURE AND MAP REMAINS WITH IN NORMAL LIMITS, OXYGEN SATS REMAIN GOOD WITH NC. STATUS CHANGE TO PCU, AWAITING BED FRO TRANSFER.
--- NOTE | 2020-09-11 19:00 | NUR ---
ASSUMED CARE ASSUMED CARE OF PATIENT. AWAKE AND ALERT AT THIS TIME. ANSWERS YES/NO QUESTIONS APPROPRIATELY, OTHERWISE PT JUST MOANS AND SAYS "OW". CRYING AT TIMES. MOVES ALL EXTREMITIES WEAKLY. MONITOR SHOWS NSR, RATE 80s. BP STABLE WITH MAP >65. 2L NC TO MAINTAIN SATS >92%. RESPIRATIONS SHALLOW, BUT EVEN AND UNLABORED. ARGATROBAN INFUSING AT 1MCG/KG/MIN (3.42ML/HR) PER ORDER. FENTANYL GTT AT 20MCG/HR PER ORDER. JAVIER PICC NOTED. BUTT PATENT AND DRAINING TO GRAVITY. SCATTERED BRUISES AND SKIN TEARS NOTED. DRSG D/I TO COCCYX. SEE SHIFT ASSESSMENT FOR FULL ASSESSMENT.
[2020-09-12 04:05] LABS: BASOPHILS ABSOLUTE AUTO 0.01 K/mm3 (0.00-0.23); BASOPHILS PERCENT AUTO 0 % (0-2); EOSINOPHILS PERCENT AUTO 0 % (0-6); Hematocrit 26.9 % (33.0-51.0); Hemoglobin 8.5 g/dL (11.5-16.0); IMMATURE GRAN ABSOLUTE AUTO 0.12 K/mm3 (0.00-0.10); IMMATURE GRAN PERCENT AUTO 1 % (0-1); LYMPHOCYTES ABSOLUTE AUTO 0.71 K/mm3 (0.84-5.20); LYMPHOCYTES PERCENT AUTO 6 % (21-46); MONOCYTES ABSOLUTE AUTO 0.43 K/mm3 (0.16-1.47); MONOCYTES PERCENT AUTO 4 % (4-13); Mean Corpuscular HGB 32.7 pg (26.0-34.0); Mean Corpuscular HGB Conc 31.6 g/dL (31.5-36.5); Mean Corpuscular Volume 104 fL (80-100); Mean Platelet Volume 12.5 fL (9.1-12.4); NEUTROPHILS ABSOLUTE AUTO 11.11 K/mm3 (1.96-9.15); NEUTROPHILS PERCENT AUTO 90 % (41-73); NRBC ABSOLUTE 0.02 K/mm3 (0.00-0.02); NRBC Auto 0.2 /100 WBC (0.0-0.2); RDW Coefficient Variation 14.7 % (11.7-14.2); RDW Standard Deviation 55.3 fL (35.1-46.3); White Blood Cell Count 12.38 K/mm3 (4.00-11.30)
[2020-09-12 04:10] LABS: Platelet Count 48 K/mm3 (150-400)
[2020-09-12 04:24] LABS: Bun/Creatinine Ratio 47.4 (12.0-20.0); Calcium, Blood 8.9 mg/dL (8.5-10.1); Creatinine, Blood 0.97 mg/dL (0.40-1.00); Magnesium, Blood 2.1 mg/dL (1.6-2.4); Phosphorus, Blood 3.1 mg/dL (2.5-4.9); Potassium, Blood 4.4 mmol/L (3.5-5.5)
--- NOTE | 2020-09-12 06:23 | NUR ---
SHIFT SUMMARY NO ACUTE CHANGES. CONTINUES WITH MINIMAL VERBAL RESPONSE. RESISTANT TO SOME CARE. CONTINUES WITH C/O GENERAL PAIN. FENTANYL GTT AT 20MCG/HR. MONITOR SHOWS NSR-ST, RATE 90s- 100s. BP STABLE WITH MAP >65 T/O SHIFT. AFEBRILE. REMAINS ON 2L NC WITH SATS 89-94%. RESPIRATIONS SHALLOW, 12-16. OCCASIONAL MOIST COUGH. NT SX'D X 1 DURING SHIFT- THICK CREAMY SPUTUM. DOBHOFF WITH VITAL HIGH PROTEIN AT GOAL RATE OF 30CC/HR. BUTT PATENT AND DRAINING YELLOW URINE. NO CHANGE IN WOUNDS. ARGATROBAN CONTINUES AT 1MCG/KG/HR PER PHARMACY. NEXT PTT IS SCHEDULED FOR 1600. WILL REPORT TO ONCOMING RN WHEN AVAILABLE.
--- NOTE | 2020-09-12 09:00 | NUR ---
PT RESTING IN BED. DOES NOT ANSWER QUESTIONS, JUST MOANS. ON FENTANYL PORTABLE SAWYER. WILL FOLLOW SIMPLE COMMANDS FOR EXAMPLE OPEN MOUTH FOR MOUTH CARE. PUPILS ARE NOT REACTIVE AND HAVE A CLOUDY HAZE, NOT SURE IF PT HAS HAD EYE SURGERIES IN THE PAST. CAN MOVE LEGS BUT THEY ARE CONTRACTED AT THE KNEE WHICH INHIBITS FULL ROM. SOME OF HER TOES ARE CONTRACTED WELL. SKIN IS EXTREMELY FRAIL T/O. MULTIPLE SKIN TEARS TO ARMS AND LEGS. BRUISING AND REDNESS T/O WELL. DECUBITUS ULCER TO SACRUM THAT HAS PACKING IN IT AND IS COVERED WITH MEPILEX DRESSING. SKIN TO PERIAREA IS REDENED. PT IS HAVING SOFT BM'S. ON TUBE FEEDS THROUGH DOBHOFF. NO SIGN OF DISTRESS AT THE MOMENT.
--- NOTE | 2020-09-12 14:30 | NUR ---
DR. HAMPTON IS HAVING A MEETING WITH , PALLIATIVE CARE, POWER SYSTEM DISPATCHER, AND AT BEDSIDE. PT WILL BE TRANSFERED TO PCU. REPORT GIVEN TO ELKE GONZALEZ.
--- NOTE | 2020-09-12 15:48 | NUR ---
Family conference this afternoon in Alma's room in ICU. Nic, her S.O. of 20 years, is at the bedside. Dr. Cardoza spoke with Nic and updated him on Alma's condition. EMMA Guardado RN and this rewriter are present for the conversation. Dr. Cardoza explained that Alma's medical conditions are not responding well to the treatments at this time. Dr. Cardoza has requested that an ID consult take place for Alma. Dr. Cardoza encouraged Nic to consider Alma's feelings of what she would want. Dr. Cardoza addressed hospice as an option for Alma. Nic stated several times during the conversation with Dr. Cardoza that he didn't understand why the antibiotics couldn't fix the infection and why can't she have surgery to fix the open wound. Dr. 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 Nic states "I just can't wrap my mind around it." Emotional support given to Nic and Alma after Dr. Cardoza and EMMA Guardado RN left the room. Nic reports he is overwhelmed by the information he has received and is hopeful that Dr. Ch will have a different option to consider for treatment. Nic reports Alma has a dtr in [place] who he will call and update. He states Alma's dtr will likely want to come and visit her mom. Alma was quiet throughout the visit except for an occasional moan. Her eyes were open for most of the visit. Offered to contact Alma's dtr, but Nic declined. He states he will call her. Nic asked about hospice and what that would look like. Briefly discussed hospice services and what that could look like at home. Nic states "Isn't that just giving up to let her ?" Explained that hospice services are meant to control symptoms and improve quality of life by focusing on comfort, not curative treatments. Nic states he needs some time alone to be with Alma and to process the information he has learned from Dr. Cardoza. He will wait for Dr. Ch's consult and talk with Alma's dtr. Did not address code status during this visit as he is already overwhelmed by information rec'd and Alma's dtr is the legal NOK for decision making. PC to follow to assist with symptom management, advanced care planning and disease process education.
--- NOTE | 2020-09-12 16:04 | NUR ---
TRANSFER TO PCU PT TRANSFERED FROM ICU VIA BED. NOT RESPONDING VERBALLY TO US. MOANING AT TIMES. EYES ARE OPEN BUT PATIENT NOT MAKING EYE CONTACT. TUBE FEEDING RUNNING AT 30ML/HR. ARGATROBAN INFUSING AT 1 MCG/KG/MIN AND 54KG. PEDIATRIC AUDIOLOGIST PUMP INFUSING FENTANYL AT 20 MCG/HR. VITAL SIGNS STABLE. ON 2 L O2 VIA NASAL CANNULA SATING ABOVE 92%. TELE SHOWING SINUS RHYTHM WITH HR AT 99. COCCYX ULCER VISUALIZED WITH PREVIOUS RN AND INFECTIOUS DOCTOR AT BEDSIDE ON TRANSFER. WILL CONTINUE TO MONITOR.
--- NOTE | 2020-09-12 16:44 | NUR ---
Pt has Manas Winn listed as PCP. Called [facility]. Cindy DENNIS has seen Alma in the urgent care at [facility] however he is not her PCP. [facility] does not have any contact information listed for Alma's dtr. The NOK they have in their system is adam Lucero's S.OJose
--- NOTE | 2020-09-12 16:49 | NUR ---
PUMP FEEDING INCREASED TO 40ML HR PER ORDERS.
--- NOTE | 2020-09-12 18:36 | NUR ---
SHIFT SUMMARY: UPDATES FROM PREVIOUS NOTE. PATIENT STILL NONVERBAL, NOT MAKING EYE CONTACT. OCCASIONAL MOANS. NO FACE GRIMICING. FIANCE IN TO SEE PATIENT THIS EVENING HOLDING HAND AT BEDSIDE. VITALS REMAIN STABLE. MEDS DELIVERED THROUGH NG TUBE. ANTIBIOTICS INFUSING. TURNING Q2. LEGS SLIGHTLY CONTRACTED, PER REPORT FROM ICU, IS PATIENTS BASELINE. CONTINUEING TO MONITOR.
--- NOTE | 2020-09-12 21:34 | NUR ---
CARE ASSUMPTION UPON RECIEVING REPORT IT WAS DISCOVERED THAT THE PT'S CHINA WAS LEAKING SO PROVIDER RINA WAS CONTACTED AND SHE CAME TO THE ROOM AND ATTEMPTED TO REPAIR IT, WE WILL RESUME FEEDINGS PER ORDER. PT IS AT EASE AT DOES NOT APPEAR IN PAIN, METAL FABRICATING SHOP HELPER PUMP WAS REFILLED AND IS RUNNING PER ORDER. ORAL CARE PROVIDED WELL BREIF CHANGED. WCTM.
--- NOTE | 2020-09-13 01:13 | NUR ---
DC'D CH[place] PT'S [place] WAS OCCLUDED AND LEAKING UPON ASSUMING CARE AND AFTER AN ATTEMPT TO FIX IT BY THE PROVIDER RINA SHE ORDERED IT TO BE TAKEN OUT AND WAIT UNTIL DAYSHIFT TO ATTEMPT A NEW ONE THE PT IS NOT TOLERANT TO US PLACING ONE NOW. MEDS HELD DUE TO NO ACCESS PER TUBE, WCTM.
--- NOTE | 2020-09-13 04:21 | NUR ---
MOLDING LINE OPERATOR SUMMARY PT HAD DOBHOFF REMOVED AT START OF SHIFT DUE TO OCCLUSION, SEE PREVIOUS NOTES. PT HAS MOANED IF IN PAIN THROUGHOUT THE SHIFT BUT APPEARS COMFORTABLE WHEN NOT BEING MOVED. WOUND CARE DONE AND PICS TAKEN, SEE CHART. VSS AND NO SIGNS OF BLEEDING. NT SUCTION PROVIDED BY RT AT START OF THE SHIFT WHICH IMPROVED THE PT'S BREATHING VERY MUCH, PT REMAINS ON 2L O2 VIA NC. PT HAD ONE SMALL LIQUID BOWEL MOVEMENT THIS SHIFT. WILL REPORT TO ONCOMING RN, KIMBERLY.
[2020-09-13 05:49] LABS: Hematocrit 25.1 % (33.0-51.0); Hemoglobin 7.8 g/dL (11.5-16.0); Mean Corpuscular HGB 32.6 pg (26.0-34.0); Mean Corpuscular HGB Conc 31.1 g/dL (31.5-36.5); Mean Corpuscular Volume 105 fL (80-100); NRBC ABSOLUTE 0.06 K/mm3 (0.00-0.02); NRBC Auto 0.5 /100 WBC (0.0-0.2); RDW Coefficient Variation 14.8 % (11.7-14.2); RDW Standard Deviation 57.1 fL (35.1-46.3); Red Blood Cell Count 2.39 M/mm3 (3.80-5.20); White Blood Cell Count 11.19 K/mm3 (4.00-11.30)
[2020-09-13 05:53] LABS: Mean Platelet Volume 13.6 fL (9.1-12.4); Platelet Count 50 K/mm3 (150-400)
[2020-09-13 06:05] LABS: Bun/Creatinine Ratio 62.3 (12.0-20.0); Calcium, Blood 9.2 mg/dL (8.5-10.1); Creatinine, Blood 1.06 mg/dL (0.40-1.00); Potassium, Blood 4.5 mmol/L (3.5-5.5)
--- NOTE | 2020-09-13 08:26 | NUR ---
Dr. Cardoza was here. UPdated on overnight events per noc shift RN report. At this time, pt is awake, occasionally moaning but otherwise showing no verbal or vocalized responses. Pupils are dilated, left greater than right, and showing no response to light. The pt does squeeze my hands when asked to, with her hands, but the right is definitely stronger than the left. She has spontaneous movement of her extremities, weakly. Telemetry shows sinus tachycardia. Loud systolic murmur noted 5 ICS at the LMCL, otherwise no other abnormal heart sounds auscultated. Large and small petechiae noted over the shoulders, arms, anterior neck, and lower extremities. Swelling of the upper right thigh, ankles and pedal areas, right much greater than the left. Pt is lying on her right side, moaning occasionally. Jeter draining clear yellow urine. Jeter draining clear yellow urine.
--- NOTE | 2020-09-13 09:42 | NUR ---
REPOSITIONED LEFT LYING SIDE, HEELS FLOATED ON PILLOWS TO PREVENT PRESSURE ON HEELS. PT MOANS SLIGHTLY, OPENS EYES SPONTANEOUSLY.
--- NOTE | 2020-09-13 12:40 | NUR ---
Pt face wiped with wet warm washcloth, hair combed and oral care provided. Pt opened her mouth to request, continues to not follow with eyes, but does blink to light. Does nurse ldr on the right hand when asked, nurse ldr left hand very weak. Intermittent soft moaning sounds. Does not appear to be in any distress. Facial expression symmetrical, no grimacing or restlessness nor anxiety observed. Repositioned to the right side, dependent edema noted. Extemities elevated.
--- NOTE | 2020-09-13 12:40 | NUR ---
Review of plan to help family with decisional process. Pt SO will need more education on her status.
--- NOTE | 2020-09-13 17:08 | NUR ---
Gus Lucero here to see the patient again. He is requesting a transfer to [facility]; called Dr Cardoza with the significant other's request and Dr. Cardoza said that he is initiating that now at Nic's request. The pt continues to be non verbal, without brisk pupil reaction and unequal dilation of the pupils, which was reported to the physician. She moans quietly, but does not make any words or attempts at vocalization when spoken to. She does open her mouth and flooring sales manager her hands weakly (right stronger than left) to commands and spontaneously weak movements of her extremities rarely.
--- NOTE | 2020-09-14 03:09 | NUR ---
BUTT D/C/RE-INSERTION WAS CONCERNED REGARDING PT'S LOW URINE OUTPUT. BUTT TUPING APPEARED TO BE PULLED FROM URETHRAL OPENING. BLADDER SCANNED PT WHICH REVEALED 677 ML OF URINE IN BLADDER. REMOVED BUTT CATHETER AND INSERTED NEW CATHETER. NEW CATHETER SHOWED LITTLE DRAINAGE FROM BLADDER. CONSULTED WITH OPERATIONS LIAISON. UPON FURTHER ASSESSMENT PT HAS SIGNIFICANT THIRD SPACING RESULTING IN HIGH BLADDER SCAN AMOUNT. WILL CONSULT PHYSICIAN REGARDING LOW URINE OUTPUT.
--- NOTE | 2020-09-14 03:30 | NUR ---
PHYSICIAN NOTIFIED PHYSICIAN NOTIFIED OF PT'S LOW URINE OUTPUT. NO INSTRUCTION AT THIS TIME. WILL CONTINUE TO MONITOR.
[2020-09-14 04:56] LABS: Bun/Creatinine Ratio 63.4 (12.0-20.0); Calcium, Blood 8.7 mg/dL (8.5-10.1); Creatinine, Blood 1.34 mg/dL (0.40-1.00); Potassium, Blood 4.1 mmol/L (3.5-5.5)
--- NOTE | 2020-09-14 05:35 | NUR ---
SHIFT SUMMARY PT MOANS IN RESPONSE TO VERBAL STIMULI. PT TURNED Q 2 HRS. MEPLEX ON COCCYX IN PLACE, DRESSING C/D/I. HR REMAINED STABLE. BP STABLE. OXYGEN SATURATION MAINTAINED ABOVE 92% ON 4.5 L OF OXYGEN VIA NC. BUTT PATENT AND DRAINING. PHYSICIAN NOTIFIED OF LOW URINE OUTPUT. UNABLE TO ASSESS PAIN D/T PT'S COGNITIVE STATE. PATROL COMMUNITY SERVICE OFFICER PUMP IN USE, WILL VERIFY WITH ANOTHER RN AT END OF SHIFT. TPN RUNNING. ARGATROBAN GTT. WILL CONTINUE TO MONITOR UNTIL REPORT GIVEN TO DAYSHIFT RN.
[2020-09-14 14:12] LABS: Hematocrit 21.7 % (33.0-51.0); Hemoglobin 6.6 g/dL (11.5-16.0); Mean Corpuscular HGB 32.8 pg (26.0-34.0); Mean Corpuscular HGB Conc 30.4 g/dL (31.5-36.5); Mean Corpuscular Volume 108 fL (80-100); NRBC ABSOLUTE 0.38 K/mm3 (0.00-0.02); NRBC Auto 2.7 /100 WBC (0.0-0.2); Platelet Count 52 K/mm3 (150-400); RDW Coefficient Variation 15.3 % (11.7-14.2); Red Blood Cell Count 2.01 M/mm3 (3.80-5.20)
[2020-09-14 14:15] LABS: Mean Platelet Volume 13.7 fL (9.1-12.4)
--- NOTE | 2020-09-14 19:33 | NUR ---
SHIFT SUMMARY THIS AM PT EYES OPEN, PT HEAD TURNED TO LEFT ANS STARRING; PT EYES STARRING OFF, NO TRACKING OR MOVING TO FIND SOUND; PUPLIS UNEVEN AND NOT REACTIVE TO LEFT. PT MOANS WHEN STAFF IS AT BEDSIDE. PT NOT FOLLOWING DIRECTIONS; NOT GRIPPING WHEN ASKED; HOWEVER PT CONTINUES TO MOVE ARMS. NO S/SX OF PAIN NOTED. PUPPET MASTER FENTANYL PUMP 20MCG/HR. PT ON 4.5L O2 VIA NC THIS AM; TITRATED T/O SHIFT; LS COARSE AND WET T/O. ORAL CARE Q4. BLOOD FOUND IN MOUTH DURING ORAL CARE THIS AFTERNOON; RT TO ROOM TO SUCTIONS; PT COUGHING WITH SUCTION FOR RED AND FROTHY; DR SIMEON NOTIFIED BY MANAGER LICENSING AMY. CBC RECHECKED AND DR SIMEONED NOTIIFED OF LABS; PLACED NEW ORDER FOR 1 UNIT OF PRBC WHICH IS CURRENTLY INFUSING, PT APPEARS TO BE TOLERATING. VSS T/O SHIFT. DURING BEDSIDE REPORT IT WAS NOTED THAT THE PT WAS TRACKING STAFF IN ROOM. NO OTHER ACUTE CHANGES NOTED. REPORT GIVEN TO ONCOMING RN.
[2020-09-15 09:25] LABS: Albumin, Blood 1.1 g/dL (3.4-5.0); Albumin/Globulin Ratio 0.3 (0.8-1.8); Bilirubin, Total 0.5 mg/dL (0.1-1.0); Bun/Creatinine Ratio 66.5 (12.0-20.0); Creatinine, Blood 1.64 mg/dL (0.40-1.00); Globulin, Blood 3.2 g/dL (2.2-4.0); Potassium, Blood 4.3 mmol/L (3.5-5.5); Total Protein, Blood 4.3 g/dL (6.4-8.2)
--- NOTE | 2020-09-15 19:22 | NUR ---
SHIFT SUMMARY PT ALERT; ORIENTED TO PERSON/SELF AND PLACE; UNSURE OF DATE AND WHY SHE CAME IN. PT SLEEPING INTERMITTENTLY T/O SHIFT. MOANING AT TIMES. PT ASKING FOR WATER AND FOOD THIS AM; USING FULL SENTANCES AT TIMES. PT GRIMACING AT TIMES, MOANING IN PAIN; FENTANYL BISQUE KILN PLACER IN PLACE AND INFUSING AT 20 MCH/HR. SPO2 >90% ON 3L O2 VIA NC THIS AM; TITRATED TO 1L O2 ANC. PT FOLLOWING DIRECTIONS, COUGHING WHEN ASKED. PT ASKING FOR FOOD AND DRINK; NO OTHER S/SX OF DISTRESS. MINIMAL URINE OUTPUT NOTED; DR SIMEON AWARE. PT RECIEVING CLINIMIX, LIPIDS, AND ANTIBIOTICS. BLE EDEMA; SKIN FRAIGIL AND SPLITING. DRESSING CHANGED TO COCCYX , CLEANED AND REPLACED CALCIUM ALGINAT AND MEPILEX FOAM IN PLACE. NO HEMOPTOSIS NOTED T/O SHIFT. ORAL CARE COMPLETED Q4. VSS. NO OTHER ACUTE CHAGNES NOTED REPORT GIVEN TO ONCOMING RN.
[2020-09-16 05:40] LABS: Hematocrit 20.5 % (33.0-51.0); Hemoglobin 6.9 g/dL (11.5-16.0); Mean Corpuscular HGB Conc 33.7 g/dL (31.5-36.5); Mean Corpuscular Volume 104 fL (80-100); NRBC Auto 7.1 /100 WBC (0.0-0.2); RDW Coefficient Variation 15.9 % (11.7-14.2); RDW Standard Deviation 57.8 fL (35.1-46.3); Red Blood Cell Count 1.97 M/mm3 (3.80-5.20)
[2020-09-16 05:51] LABS: Mean Platelet Volume 14.2 fL (9.1-12.4); Platelet Count 44 K/mm3 (150-400)
[2020-09-16 05:56] LABS: Bun/Creatinine Ratio 65.4 (12.0-20.0); Calcium, Blood 8.6 mg/dL (8.5-10.1); Creatinine, Blood 1.82 mg/dL (0.40-1.00); Potassium, Blood 4.3 mmol/L (3.5-5.5)
--- NOTE | 2020-09-16 06:21 | NUR ---
SHIFT SUMMARY PT ALERT TO SELF AND LOCATION. FREQUENTLY MOANS. ORAL CARE PROVIDED Q 4 HRS. PT TURNED Q 2 HRS AND NEEDED. DRESSING ON WOUND CHANGED. CALCIUM ALGANATE APPLIED AND MEPLEX IN PLACE. TPN GTT RUNNING. FENTANYL CORPORATE COMPLIANCE DIRECTOR PUMP RUNNING, VERIFIED WITH LISA SWAIN. SEE EMAR. HR STABLE. BP STABLE. OXYGEN SATURATION MAINTAINED ABOVE 92% ON 1 L OF OXYGEN VIA NC. WILL CONTINUE TO MONITOR UNTIL REPORT GIVEN TO DAYSHIFT RN.
--- NOTE | 2020-09-16 08:20 | NUR ---
DR. SIMEON AT BEDSIDE. DISCUSSED POC. NOTIFIED HIM CODE ENFORCEMENT SUPERVISOR RNS REPORTED DARK BOWEL MOVEMENT, LOW URINE OUTPUT OF APPROX 200 MLS LAST NIGHT. REVIEWED FLUIDS THAT PATIENT HAS RECEIVED. DR. SIMEON STATED DARK BM IS PROBABLY FROM PATIENT HAVING HEMOPTYSIS AND SWALLOWING THE BLOOD. PLAN IS FOR BLOOD TRANSFUSION THIS AM. TURN DOWEL PIN MAN OFF FOR 1 HOUR AND THEN DC THE FENTANYL DOWEL PIN MAN. PATIENT HAS FENTANYL ORDERED. PLAN IS TO GIVE MORE FLUIDS OR ASK DIETARY IF WE CAN INREASE THE CLINIMIX RATE, WILL CONSULT WITH DIETARY/PHARMACY.
--- NOTE | 2020-09-16 13:04 | NUR ---
1 UNIT PRBCS FINISHED INFUSING AT 1304. VSS. FINE CRACKLES HEARD IN THE BASES OF HER LUNGS, UNCHANGED FROM PREVIOUSLY.
--- NOTE | 2020-09-16 13:45 | NUR ---
SPOKE WITH CONTROL OFFICER MANAGER REGARDING IV FLUID INTAKE. SHE STATES RECOMMENDS CENTRAL PARENTERAL NUTRITION PATIENT HAS A PICC LINE. NOTIFIED DR. SIMEON. DR. SIMEON ORDERED CONTROL OFFICER MANAGER CONSULT FOR CPN.
--- NOTE | 2020-09-16 19:39 | NUR ---
SHIFT SUMMARY: PATIENT WAS VERY DROWSY AND LESS RESPONSIVE THIS AM, A/OX0. FENTANYL FISH EGG PACKER D/C'D. PATIENT HAS BECOME MORE RESPONSIVE. SHE NOW LAYS IN BED WITH HER EYES OPEN. ABLE TO SAY SHORT SENTENCES AT TIMES, SUCH "I'M THIRSTY". SHE IS ABLE TO TELL ME HER NAME AND HER FIANCE'S NAME. SHE IS DIFFICULT TO UNDERSTAND AT TIMES. THIS AM SHE WAS UNABLE TO FOLLOW ANY INSTRUCTIONS BUT THIS EVENING SHE IS ABLE TO FOLLOW SOME, SUCH "PLEASE LIFT UP YOUR ARM." SHE IS PAINFUL WITH REPOSITIONING, FENTANYL GIVEN FOR REPOSITIONING. 1 UNIT PRBCS GIVEN. SPEECH THERAPY STATED CONTINUE NPO, SEE SPEECH THERAPY NOTE. TPN STARTED. LOW URINE OUTPUT BUT SHOULD INCREASE WITH TPN/MORE FLUIDS STARTING THIS EVENING (PER DR. SIMEON'S PLAN). HAD TWO DARK LIQUID STOOLS. DRESSING CHANGED TO COCCYX WOUND. KERLEX AND GAUZE DRESSINGS CHANGED TO MULTIPLE SKIN TEARS. PATIENT HAS VERY FRAGILE SKIN AND MULTIPLE SKIN TEARS. REPOSITIONED Q2H. DISCUSSED POC WITH PATIENT'S FIANCE, HE WAS AT THE BEDSIDE SEVERAL TIMES TODAY. REPORT GIVEN TO ONCOMING RN.
[2020-09-17 05:25] LABS: BASOPHILS ABSOLUTE AUTO 0.02 K/mm3 (0.00-0.23); BASOPHILS PERCENT AUTO 0 % (0-2); EOSINOPHILS ABSOLUTE AUTO 0.03 K/mm3 (0.00-0.68); EOSINOPHILS PERCENT AUTO 0 % (0-6); Hematocrit 24.6 % (33.0-51.0); Hemoglobin 8.3 g/dL (11.5-16.0); IMMATURE GRAN PERCENT AUTO 4 % (0-1); LYMPHOCYTES ABSOLUTE AUTO 1.11 K/mm3 (0.84-5.20); LYMPHOCYTES PERCENT AUTO 10 % (21-46); MONOCYTES ABSOLUTE AUTO 0.78 K/mm3 (0.16-1.47); MONOCYTES PERCENT AUTO 7 % (4-13); Mean Corpuscular HGB 33.3 pg (26.0-34.0); Mean Corpuscular HGB Conc 33.7 g/dL (31.5-36.5); NEUTROPHILS ABSOLUTE AUTO 9.19 K/mm3 (1.96-9.15); NEUTROPHILS PERCENT AUTO 80 % (41-73); NRBC ABSOLUTE 1.32 K/mm3 (0.00-0.02); NRBC Auto 11.4 /100 WBC (0.0-0.2); RDW Coefficient Variation 17.1 % (11.7-14.2); RDW Standard Deviation 58.9 fL (35.1-46.3); Red Blood Cell Count 2.49 M/mm3 (3.80-5.20); White Blood Cell Count 11.53 K/mm3 (4.00-11.30)
[2020-09-17 05:35] LABS: Mean Corpuscular Volume 99 fL (80-100); Mean Platelet Volume 14.6 fL (9.1-12.4)
[2020-09-17 05:38] LABS: Platelet Count 39 K/mm3 (150-400)
[2020-09-17 05:48] LABS: Albumin, Blood 1.1 g/dL (3.4-5.0); Anion Gap 11 mmol/L (6-16); Blood Urea Nitrogen 127 mg/dL (8-24); Bun/Creatinine Ratio 64.8 (12.0-20.0); CO2, Blood 21 mmol/L (21-32); Calcium, Blood 8.4 mg/dL (8.5-10.1); Chloride, Blood 110 mmol/L (98-108); Creatinine, Blood 1.96 mg/dL (0.40-1.00); Glomerular Filtration Rate 27 (60-); Glucose, Blood 118 mg/dL (70-99); Magnesium, Blood 2.5 mg/dL (1.6-2.4); Phosphorus, Blood 5.1 mg/dL (2.5-4.9); Potassium, Blood 4.3 mmol/L (3.5-5.5); Sodium, Blood 142 mmol/L (136-145); Triglycerides 270 mg/dL (30-160)
--- NOTE | 2020-09-17 06:39 | NUR ---
SHIFT SUMMARY ASSUMED CARE OF PT AT 1900. IT IS DIFFICULT TO ASSESS ORIENTATION, PT MUMBLES WHEN SHE TALKS AND CAN SPEAK ONE WORD SENTENCES. HEART SOUNDS REGULAR, LUNG SOUNDS HAVE CRACKLES AT THE BASES. PT HAS A RATTLE IN HER THROAT, RT SUCTIONED PT. PT REMAINED ON 1L NC T/O THE NIGHT. PT HAVING LOOSE GREEN STOOLS. BUTT DRAINING WITH GRAVITY, URINE CLEAR AND YELLOW. PT HAS WOUND ON COCCYX, MEPILEX ON BOTTOM. PT HAS VARIES BRUISES AND SKIN TEARS ACROSS HER BODY, PT SKIN IS VERY FRAGILE. PT WAS MEDICATED BEFORE EACH TURN BUT DENIED PAIN WHEN NOT TOUCHED. CALL LIGHT IN REACH, BED IN LOWEST POSITION.
[2020-09-17 07:09] LABS: SRA, LOW DOSE HEPARIN 2 % (0-20)
--- NOTE | 2020-09-17 18:22 | NUR ---
PT SUMMARY: PT HAS BEEN LETHARGIC MOST OF THE SHIFT, GARBLES AND MOANS, RESPONDS TO VERBAL STIMULI WHEN SLEEPING, ORAL SUCTION/CARE DONE OFTEN/PRN, PT STILL SOUNDS CRACKLY ON UPPER RESPI. SPUTUM BLOOD TINGED. VITALS HRR SR 80'S, BP SYSTOLIC 98-117, SATS ABOVE 92% ON 1L OF O2, AFEBRILE. PT DRESSINGS ON COCCYX CHANGED ONCE AND BLE CHANGED ATLEAST TWICE FOR THE SHIFT, PT HAS VERY FRAGILE SKIN WITH SKIN TEARS ON BLE AND IS WEEPING DUE TO EDEMA. BRUISES SCATTERED T/O. JAVIER PICCLINE HAS DRESSING WRAPPED AROUND IT POSS WAS PLACE DUE TO WEEPING, PICC LINE DRESSING WAS INTACT BUT HAS DRIED BLOOD AROUND IT FROM WEEPING, BRYNN RN WAS ASKED FOR 2ND OPINION ABOUT THE DRESSING AND RECOMMENDED TO CHANGE THE DRESSING, DRESSING WAS REMOVED BY ALLYSON RN AND NOTICED A LARGE SKIN TEAR WITH STERI STRIPS ON ABOVE THE PICC SITE THAT IS POSSIBLY BEEN WEEPING SINCE THE DRESSING WAS LAST CHANGED, THIS RN WAS ASKED TO COME IN THE ROOM AND CHECK ON THE PICC SITE THAT DEFINITELY LOOKS INFECTED [employer] CAME TO CHECK WELL AND RECOMMENDED TO PULL OUT THE PICC LINE (PICS IN THE CHART). PALLIATIVE CARE NURSE WAS ASKED TO DISCUSS WITH THE SIGNIFICANT OTHER ABOUT POSSIBLY CONSIDERING COMFORT CARE PT WAS NOT A CANDIDATE FOR PICC LINE INSERTION AT THIS TIME AND PT DOESNT HAVE ANY ACCESS FOR CPN INFUSION SIGNIFICANT OTHER REQUESTED TO TALK TO THE HOSPITALIST, DR SIMEON AND S.O. AGREED TO GIVE THE PT ATLEAST 24 MORE HRS AND SEE HOW PT DOES, CLINIMIX ORDERED FOR NOW, WILL ATTEMPT TO PLACE A POWERGLIDE AT THIS TIME. PT REPOSITONED Q2HRS, BED IN LOWEST POSITION, CALL LIGHTS IN REACH WILL MONITOR UNTIL END OF SHIFT
--- NOTE | 2020-09-17 19:21 | NUR ---
Pt remains somulent with minimal verbal response. Slighly loabored respirations and coarse audible lung sounds. Nrisng relays some blood tinged sputem with suctioning. Pt PICC line infected. Pt has anasarca, skin red fragile and multiple bruised and skin tears. Pt kps score is 20% Nic came in her SO we had enrique discussion of prognosis and her failed Shefali site and nutritional needs. Reviewed her nutritional needs and falure to vandana. Presented end of life care. He is more accepting and asked many questions. He is still bargaining but was more open to the conversation. He requested a chance to speak to the physician and review her needs. The plan is to try another iv and some return to the clinimix. His hope is that she will tolerate the hydration. Reviewed with him that she may not respons well to the IV nutrition. He demonstated understanding and asked how comfort care works. Review of medications. and visitation. Will revewi with him again tomorrow her labs and prognosis. He was griefing and tearfull and expressive will have wilma reach out to him tomorrow.
--- NOTE | 2020-09-18 05:54 | NUR ---
TRANSFER DURING NIGHT, PT'S BP HAS BEEN TRENDING DOWN. THIS AM, PT'S BP WAS NOTED AT 84/53. HOSPITALIST DR GUEVARA NOTIFIED. 500 ML BOLUS NS GIVEN. BP AFTER BOLUS CAME DOWN TO 73/49. ON RECHECK AT 70/44. PT IS AWAKE AND AT HER CURRENT BASELINE OF A&O X [address] GUEVARA NOTIFIED, AND TRANSFER TO ICU ORDERED WELL A LEVOPHED DRIP TO BE STARTED. DUE TO PT'S DNR STATUS WELL POTENTIAL TRANSFER TOWARDS COMFORT CARE, ATTEMPTED TO CONTACT PT'S FIANCE REGARDING INTERVENTIONS, BUT THERE WAS NO ANSWER AT ANY PHONE NUMBERS ON PT'S RECORD. REPORT TO BE CALLED TO LISA MUÑOZ IN ICU.
[2020-09-18 05:57] LABS: Hematocrit 19.9 % (33.0-51.0); Hemoglobin 6.5 g/dL (11.5-16.0); Mean Corpuscular HGB Conc 32.7 g/dL (31.5-36.5); Mean Corpuscular Volume 101 fL (80-100); NRBC ABSOLUTE 1.65 K/mm3 (0.00-0.02); RDW Coefficient Variation 18.1 % (11.7-14.2); RDW Standard Deviation 61.1 fL (35.1-46.3); Red Blood Cell Count 1.97 M/mm3 (3.80-5.20); White Blood Cell Count 11.01 K/mm3 (4.00-11.30)
[2020-09-18 06:13] LABS: Platelet Count 33 K/mm3 (150-400)
[2020-09-18 06:18] LABS: Albumin/Globulin Ratio 0.3 (0.8-1.8); Bilirubin, Total 0.5 mg/dL (0.1-1.0); Bun/Creatinine Ratio 67.4 (12.0-20.0); Calcium, Blood 8.4 mg/dL (8.5-10.1); Creatinine, Blood 2.15 mg/dL (0.40-1.00); Magnesium, Blood 2.6 mg/dL (1.6-2.4); Phosphorus, Blood 5.7 mg/dL (2.5-4.9)
--- NOTE | 2020-09-18 06:39 | NUR ---
REPORT FROM SANDRA VALENCIA PT TRANSFERRED AT 0623 - PT PLATELET CRITICAL AT 33, HGB 6.5, HCT 19.9 - MD NOTIFIED. PT VITALS FOLLOWS, 75/57, 80HR, 97%RA, 20RR, 87F TEMP. BEAR HUGGER TO BE PLACED ON PT. BUTT IN PLACE DRAINNG TO GRAVITY. POWERGLIDE FLUSHING AND DRAWING - LEVOPHED STARTED PER ICU NURSE. TURNING AND REPOSITIONING FOR PT COMFORT/PROTECTION OF SACRAL WOUND. PT AO X1 - UNABLE TO MAKE NEEDS KNOWN.
--- NOTE | 2020-09-18 06:49 | NUR ---
HYPOTHERMIA AND HYPOTENSION TEMPORAL TEMP READING 86.5F. ORAL TEMP READING 87.OF. HEIDI HUGGER ON AT THIS TIME. BP 75/57- LEVOPHED STARTED AT 2MCG/MIN THROUGH [facility] POWERGLIDE. POWERGLIDE WITH GOOD BLOOD RETURN BEFORE LEVOPHED STARTED.
--- NOTE | 2020-09-18 08:15 | NUR ---
ASSUMED CARE OF PT, REPORT RCV'D FROM LISA SOTO. PT ALERT TO VERBAL STIMULI, RESPONDS WITH MOANS AND INCOMPREHENSIBLE SPEECH. PT FAILS TO FOLLOW COMMANDS, APPEARS VERY LETHARGIC AND WITHDRAWN. PT TEMPORAL TEMP 86.4 DESPITE BEING UNDER HEIDI HUGGER AND SEVERAL BLANKETS. PT HYPOTENSIVE AND RECEIVING 4 MCG/MIN LEVOPHED THROUGH [facility] PG (GOOD BLOOD RETURN FROM POWERGLIDE, WILL CONTINUE TO MONITOR CLOSELY FOR INFILTRATION). PT CURRENTLY HAS NO OTHER IV ACCESS. PT'S LUNG SOUNDS COARSE T/O, PLACED ON 2L NC TO MAINTAIN SATS>90%. CALLED PALLIATIVE CARE THIS AM TO ASSIST IN CONVERSATION OF COMFORT CARE WITH S/O. LAURENCE SPENCE RN IN UNIT, CALLED S/O. S/O STATES THAT HE WILL HEAD TO THE HOSPITAL. DR. SIMEON NOTIFIED. TYPE AND CROSS SENT TO LAB PT ORDERED TO RECEIVE 1 UNIT PRBC'S. SEE FULL SHIFT ASSESSMENT.
--- NOTE | 2020-09-18 09:13 | NUR ---
Pt declined with ypothermia and hypotension. Family called to come in. Will transtion to comfort. Nic called her family to come down to [place] to see her.
--- NOTE | 2020-09-18 10:24 | NUR ---
PT MADE COMFORT CARE PER S/O WISH. PT WILL REMAIN ON LEVOPHED UNTIL PT'S FAMILY ABLE TO COME AND SAY GOODBYE. COMFORT ORDERS TO BE PLACED.
--- NOTE | 2020-09-18 10:48 | NUR ---
PT'S S/O REQUESTING THAT COMFORT CARE NOT BE INITIATED UNTIL PT'S FAMILY IS ABLE TO VISIT. PER S/O FAMILY IS PASSING [place] AT THIS TIME. ORDERS UPDATED.
--- NOTE | 2020-09-18 12:46 | NUR ---
PT'S SIGNIFICANT OTHER AT BEDSIDE AWAITING PT'S DAUGHTER. LEVOPHED INFUSING AT 10 MCG/MIN THROUGH [facility]. BLOOD RETURN CHECKED AND REMAINS GOOD. CHARGE NURSE AWARE THAT THIS IS OUR ONLY IV ACCESS AT THIS TIME AND PT IS NOT CANDIDATE FOR CENTRAL LINE.
--- NOTE | 2020-09-18 12:57 | NUR ---
PT REQUIRING INCREASING SUPPORT TO MAINTAIN BLOOD PRESSURE. LEVOPHED INCREASED TO 12 MCG/MIN. DISCUSSION WITH S/O REGARDING RISK OF INFUSING LEVOPHED THROUGH PERIPHERAL IV AT THIS RATE. S/O STATES UNDERSTANDING. PALLIATIVE CARE AT BEDSIDE, S/O REQUESTING TO PLACE PT ON COMFORT CARE AT THIS TIME. ORDERS PLACED.
--- NOTE | 2020-09-18 13:28 | NUR ---
Patients SO wavered oncomfort care so decided to wait on transtion to comfort until daughter came in. Updated hospitalist and consulted with intesivist. Pt has continued to decline and is now eminent transitioned to comfort only will titrate off levophed. Will call for chaplian support. Review of medication strategies with nursing for her labored breathing.
--- NOTE | 2020-09-18 15:34 | NUR ---
PT AT 1525, PT'S SIGNIFICANT OTHER AT BEDSIDE WELL THIS NURSE AND PALLIATIVE CARE MICHAEL GARCIA.
--- NOTE | 2020-09-18 16:03 | NUR ---
Spiritual care note: Present with SO, Nic, at [facility]. Provided prayer and affirmation of love. Alma very peacefully thanks to great nursing care and attention. According to Nic, dtr has arrived and he left room to greet them. He has not returned. I will continue to stand-by for awhile.
--- NOTE | 2020-09-18 16:37 | NUR ---
SO Nic, returned. Dtr did not want to see pt post-mordem. Nic has selected [facility] in [place] for arrangements.
== END 2020-09-18 15:25 | DRG 853 ==
LOC: ER 14:58 → ICUW 20:51 → PCU 20:51 → ICUW 23:26 → PCU 09-12 15:16 → ICUW 09-18 06:23
PROVIDERS: Family Medicine; Internal Medicine; Internal Medicine Critical Care Medicine; Physician Assistant; ADMIT Family Medicine
PROC: 3E02340 Introduction of Influenza Vaccine into Muscle, Percutaneous Approach (ICD-10-PCS; 2020-09-02)
PROC: 02HV33Z Insertion of Infusion Device into Superior Vena Cava, Percutaneous Approach (ICD-10-PCS; 2020-09-02)
PROC: 3E043XZ Introduction of Vasopressor into Central Vein, Percutaneous Approach (ICD-10-PCS; 2020-09-02)
PROC: 0JB70ZZ Excision of Back Subcutaneous Tissue and Fascia, Open Approach (ICD-10-PCS; principal; 2020-09-04)
DX: A41.81 Sepsis due to Enterococcus (principal); L89.154 Pressure ulcer of sacral region, stage 4; R65.21 Severe sepsis with septic shock; E43 Unspecified severe protein-calorie malnutrition; G92 Toxic encephalopathy; J69.0 Pneumonitis due to inhalation of food and vomit; Z68.1 Body mass index [BMI] 19.9 or less, adult; R64 Cachexia; E87.1 Hypo-osmolality and hyponatremia; F10.239 Alcohol dependence with withdrawal, unspecified; N39.0 Urinary tract infection, site not specified; N17.9 Acute kidney failure, unspecified; D62 Acute posthemorrhagic anemia; Z51.5 Encounter for palliative care; Z23 Encounter for immunization; F17.210 Nicotine dependence, cigarettes, uncomplicated; R62.7 Adult failure to thrive; K70.10 Alcoholic hepatitis without ascites; Z20.822 Contact with and (suspected) exposure to COVID-19; D69.6 Thrombocytopenia, unspecified; E03.9 Hypothyroidism, unspecified; Y90.0 Blood alcohol level of less than 20 mg/100 ml; E87.6 Hypokalemia; F42.9 Obsessive-compulsive disorder, unspecified; R33.9 Retention of urine, unspecified; D69.59 Other secondary thrombocytopenia; E83.42 Hypomagnesemia; E83.39 Other disorders of phosphorus metabolism; E83.51 Hypocalcemia; F41.8 Other specified anxiety disorders; I70.203 Unspecified atherosclerosis of native arteries of extremities, bilateral legs; R04.0 Epistaxis; I67.9 Cerebrovascular disease, unspecified; Z66 Do not resuscitate
CPT/HCPCS: 0241U; 31720; 36415; 36430; 36569; 36600; 51702; 51798; 70450; 71045; 72193; 76770; 80048; 80053; 80069; 80076; 80202; 80400; 81001; 82140; 82533; 82542; 82803; 82947; 83605; 83690; 83735; 84100; 84132; 84439; 84443; 84478; 84481; 84484; 85007; 85014; 85018; 85025; 85027; 85610; 85651; 85730; 86022; 86140; 86850; 86900; 86901; 86923; 87040; 87070; 87075; 87076; 87077; 87086; 87147; 87184; 87185; 87186; 87205; 92526; 92610; 93005; 93010; 93306; 93308; 93321; 93925; 93926; 94640; 94667; 94762; 96365-59; 97165; 99285-25; A9270; C1751; G0008; G0480; J0295; J0834; J0883; J1650; J1720; J1940; J1956; J2060; J2543; J3010; J3370; J3475; J3480; J7030; J7040; J7050; J7060; J7120; P9016; Q2038; Q9967